=== PATIENT | male | born 1975 | race Caucasian/White ===

== ENCOUNTER 2024-02-24 12:30 | Inpatient (IN) | payer MEDICARE ==
[~2024-02-24] VITALS: Ht 185.4 cm; Wt 52.2 kg
[2024-02-24 15:55] LABS: BASOPHILS # (AUTO) 0.1 (0.0-0.1); BASOPHILS % 0.2 % (0.0-1.0); HEMATOCRIT 42.4 % (38.2-49.6); HEMOGLOBIN 13.3 g/dL (14.0-18.0); LYMPHOCYTES % 3.6 % (18.0-39.1); MEAN CORPUSCULAR HGB CONC 31.4 g/dL (31-35); MEAN CORPUSCULAR VOLUME 92.6 fL (81-99); MONOCYTES # (AUTO) 1.5 (0.2-0.8); MONOCYTES % 5.2 % (4.4-11.3); NEUTROPHILS # (AUTO) 25.9 (2.1-6.9); NEUTROPHILS % 90.1 % (38.7-80.0); PLATELET COUNT 524 x10e3/uL (140-360); RED BLOOD COUNT 4.58 x10e6/uL (4.3-5.7); RED CELL DISTRIBUTION WIDTH 14.3 % (11.7-14.4); WHITE BLOOD COUNT 28.77 x10e3/uL (4.8-10.8)
[2024-02-24 16:09] LABS: ALBUMIN 2.5 g/dL (3.5-5.0); ALBUMIN/GLOBULIN RATIO 0.4 (0.8-2.0); ANION GAP 22.2 mmol/L (8-16); BILIRUBIN,TOTAL 0.4 mg/dL (0.2-1.2); CALCIUM 11.6 mg/dL (8.4-10.2); CREATININE, SERUM 5.31 mg/dL (0.72-1.25); POTASSIUM 4.2 mmol/L (3.5-5.1); TOTAL PROTEIN 9.3 g/dL (6.5-8.1)
[2024-02-24 16:50] VITALS: TEMP 97.1
[2024-02-24] MEDS: SODIUM CHLORIDE 0.9% 1000ML 1,560 ML IV SCH (17:45)
[2024-02-24 18:24] VITALS: PULSE 98; RESP 18
[2024-02-24 20:00] VITALS: BP 125/79; PULSE 106; RESP 18; TEMP 97.6; O2SAT 97
[2024-02-24 21:00] VITALS: BP 125/79; PULSE 106; RESP 18; TEMP 97.6; O2SAT 97
[2024-02-24] MEDS ORDERED: MELATONIN 5 MG TABLET PO PRN (21:00)
[2024-02-24] MEDS ORDERED: ONDANSETRON HCL 4 MG ORAL DISINTEGRATING TAB PO PRN (21:00)
[2024-02-24] MEDS ORDERED: HYDRALAZINE HCL 20 MG/ML VIAL IV PRN (21:00)
[2024-02-24] MEDS ORDERED: FAMOTIDINE 20 MG TAB PO PRN (21:00)
[2024-02-25] VITALS (9 sets, daily range): BP systolic 129–155; BP diastolic 71–83; PULSE 89–106; RESP 17–18; TEMP 97.6–98.7; O2SAT 98–100
[2024-02-25] MEDS: SODIUM CHLORIDE 0.9% 1000ML 1,560 ML IV SCH
[2024-02-25 05:59] LABS: BASOPHILS # (AUTO) 0.1 (0.0-0.1); BASOPHILS % 0.2 % (0.0-1.0); HEMATOCRIT 38.6 % (38.2-49.6); HEMOGLOBIN 12.1 g/dL (14.0-18.0); MEAN CORPUSCULAR HEMOGLOBIN 28.7 pg (28-32); MEAN CORPUSCULAR HGB CONC 31.3 g/dL (31-35); MEAN CORPUSCULAR VOLUME 91.5 fL (81-99); MONOCYTES # (AUTO) 1.3 (0.2-0.8); MONOCYTES % 5.5 % (4.4-11.3); NEUTROPHILS # (AUTO) 21.7 (2.1-6.9); NEUTROPHILS % 89.3 % (38.7-80.0); PLATELET COUNT 506 x10e3/uL (140-360); RED BLOOD COUNT 4.22 x10e6/uL (4.3-5.7); RED CELL DISTRIBUTION WIDTH 14.4 % (11.7-14.4); WHITE BLOOD COUNT 24.32 x10e3/uL (4.8-10.8)
[2024-02-25 06:52] LABS: ALBUMIN 2.2 g/dL (3.5-5.0); ALBUMIN/GLOBULIN RATIO 0.4 (0.8-2.0); BILIRUBIN,TOTAL 0.1 mg/dL (0.2-1.2); CREATININE, SERUM 4.45 mg/dL (0.72-1.25); TOTAL PROTEIN 7.9 g/dL (6.5-8.1)
[2024-02-25] MEDS: SODIUM CHLORIDE 0.9% 1000ML 1,000 ML IV SCH (08:27)
[2024-02-25 09:01] LABS: LYMPHOCYTES % (MANUAL) 2 % (19-48); MONOCYTES % (MANUAL) 2 % (3.4-9.0); NEUTROPHILS % (MANUAL) 96 % (40-74); PLATELET ESTIMATE ADEQUATE
[2024-02-25 09:02] LABS: PLATELET MORPHOLOGY COMMENT NORMAL; RBC MORPHOLOGY COMMENT NORMAL
[2024-02-25] MEDS ORDERED: LIPITOR20 MG PO (10:32)
[2024-02-25] MEDS ORDERED: SERTRALINE HCL100 MG PO (10:32)
[2024-02-25] MEDS ORDERED: IMIPRAMINE HCL50 MG PO (10:32)
[2024-02-25] MEDS ORDERED: BUSPIRONE HCL10 MG PO (10:32)
[2024-02-25] MEDS ORDERED: CYMBALTA30 MG (10:32)
[2024-02-25 15:05] LABS: ANION GAP 24.5 mmol/L (8-16); POTASSIUM 4.5 mmol/L (3.5-5.1)
[2024-02-25 15:06] LABS: CALCIUM 11.5 mg/dL (8.4-10.2)
[2024-02-25] MEDS: ACETAMINOPHEN 325 MG TAB PO PRN (15:46)
[2024-02-25] MEDS: ATORVASTATIN 40 MG TAB PO SCH (21:53)
[2024-02-25] MEDS ORDERED: SODIUM BICARBONATE 8.4% 50 ML VIAL IV STA (23:48)
[2024-02-26] VITALS (8 sets, daily range): BP systolic 131–146; BP diastolic 73–83; PULSE 89–109; RESP 17–18; TEMP 97.7–98.7; O2SAT 99–100
[2024-02-26] MEDS: SODIUM BICARBONATE 8.4% INJ 50 ML SYR IV STA (00:12)
[2024-02-26] MEDS: SODIUM BICARBONATE 8.4% VIAL 50 ML in SODIUM CHLORIDE 0.9% 1000ML 1,000 ML IV STA (00:44)
[2024-02-26 06:03] LABS: BASOPHILS % 0.1 % (0.0-1.0); EOSINOPHILS % 0.1 % (0.0-6.0); HEMATOCRIT 33.5 % (38.2-49.6); LYMPHOCYTES # (AUTO) 0.8 (1.0-3.2); LYMPHOCYTES % 3.9 % (18.0-39.1); MEAN CORPUSCULAR HEMOGLOBIN 29.4 pg (28-32); MEAN CORPUSCULAR HGB CONC 32.8 g/dL (31-35); MEAN CORPUSCULAR VOLUME 89.6 fL (81-99); MONOCYTES # (AUTO) 1.4 (0.2-0.8); MONOCYTES % 6.5 % (4.4-11.3); NEUTROPHILS # (AUTO) 18.5 (2.1-6.9); NEUTROPHILS % 88.6 % (38.7-80.0); PLATELET COUNT 402 x10e3/uL (140-360); RED BLOOD COUNT 3.74 x10e6/uL (4.3-5.7); RED CELL DISTRIBUTION WIDTH 14.4 % (11.7-14.4); WHITE BLOOD COUNT 20.85 x10e3/uL (4.8-10.8)
[2024-02-26 06:19] LABS: ALBUMIN/GLOBULIN RATIO 0.4 (0.8-2.0); BILIRUBIN,TOTAL 0.3 mg/dL (0.2-1.2); CREATININE, SERUM 3.44 mg/dL (0.72-1.25); TOTAL PROTEIN 6.8 g/dL (6.5-8.1)
[2024-02-26 08:37] LABS: LYMPHOCYTES % (MANUAL) 4 % (19-48); MONOCYTES % (MANUAL) 1 % (3.4-9.0); NEUTROPHILS % (MANUAL) 95 % (40-74)
[2024-02-26 08:38] LABS: PLATELET ESTIMATE ADEQUATE; PLATELET MORPHOLOGY COMMENT NORMAL; RBC MORPHOLOGY COMMENT NORMAL
[2024-02-26] MEDS: HEPARIN SOD (PORCINE) 5,000 UNIT/ML VIAL SC SCH (12:09)
[2024-02-26 17:27] LABS: CALCIUM 10.6 mg/dL (8.4-10.2)
[2024-02-26 18:20] LABS: ABG HCO3 14 mmol/L (22-26); ABG PCO2 23 mmHg (35-45); ABG PH 7.38 (7.35-7.45); ABG PO2 122 mmHg (80-105); ABG TCO2 14
[2024-02-26] MEDS ORDERED: SODIUM BICARBONATE 8.4% SYRING 50 ML in SODIUM CHLORIDE 0.45% 1,000 ML IV SCH (20:30)
[2024-02-26] MEDS: SODIUM BICARBONATE 8.4% SYRING 50 ML in SODIUM CHLORIDE 0.45% 1,000 ML IV SCH (21:05)
[2024-02-27] VITALS (8 sets, daily range): BP systolic 106–133; BP diastolic 63–81; PULSE 97–102; RESP 17–20; TEMP 97.5–98.2; O2SAT 99–100
[2024-02-27 05:59] LABS: BASOPHILS % 0.2 % (0.0-1.0); EOSINOPHILS # (AUTO) 0.1 (0.0-0.4); EOSINOPHILS % 0.7 % (0.0-6.0); HEMATOCRIT 31.7 % (38.2-49.6); HEMOGLOBIN 10.6 g/dL (14.0-18.0); LYMPHOCYTES % 5.8 % (18.0-39.1); MEAN CORPUSCULAR HEMOGLOBIN 29.4 pg (28-32); MEAN CORPUSCULAR HGB CONC 33.4 g/dL (31-35); MEAN CORPUSCULAR VOLUME 87.8 fL (81-99); MONOCYTES # (AUTO) 1.5 (0.2-0.8); MONOCYTES % 8.2 % (4.4-11.3); NEUTROPHILS % 84.5 % (38.7-80.0); PLATELET COUNT 374 x10e3/uL (140-360); RED BLOOD COUNT 3.61 x10e6/uL (4.3-5.7); RED CELL DISTRIBUTION WIDTH 14.2 % (11.7-14.4); WHITE BLOOD COUNT 17.73 x10e3/uL (4.8-10.8)
[2024-02-27 06:15] LABS: ALBUMIN/GLOBULIN RATIO 0.4 (0.8-2.0); BILIRUBIN,TOTAL 0.3 mg/dL (0.2-1.2); CREATININE, SERUM 3.06 mg/dL (0.72-1.25); TOTAL PROTEIN 6.8 g/dL (6.5-8.1)
[2024-02-27] MEDS: BUSPIRONE HCL 10 MG TABLET PO SCH (08:58)
[2024-02-27] MEDS: DULOXETINE HCL 30 MG DELAYED RELEASE PO SCH (08:58)
[2024-02-27] MEDS: IMIPRAMINE HCL 50 MG TAB PO SCH (09:00)
[2024-02-27] MEDS: ACETAMINOPHEN 325 MG TAB PO PRN (11:58)
[2024-02-27 12:08] LABS: ANION GAP 15.5 mmol/L (8-16); CALCIUM 10.6 mg/dL (8.4-10.2); POTASSIUM 3.5 mmol/L (3.5-5.1)
[2024-02-27] MEDS ORDERED: LACTATED RINGER'S 1,000 ML INJ ONE (18:00)
[2024-02-27] MEDS: FUROSEMIDE INJ 10 MG/ML 2 ML VIAL IV ONE (18:27)
[2024-02-27] MEDS: SERTRALINE HCL 100 MG TAB PO SCH (21:00)
[2024-02-27] MEDS: LACTATED RINGER'S 1,000 ML INJ ONE (22:19)
[2024-02-28] VITALS (8 sets, daily range): BP systolic 102–131; BP diastolic 61–79; PULSE 101–113; RESP 16–20; TEMP 97.3–98.9; O2SAT 97–100
[2024-02-28 06:37] LABS: BASOPHILS % 0.2 % (0.0-1.0); EOSINOPHILS # (AUTO) 0.1 (0.0-0.4); EOSINOPHILS % 0.3 % (0.0-6.0); HEMATOCRIT 34.5 % (38.2-49.6); HEMOGLOBIN 11.4 g/dL (14.0-18.0); LYMPHOCYTES # (AUTO) 1.1 (1.0-3.2); LYMPHOCYTES % 6.9 % (18.0-39.1); MEAN CORPUSCULAR HEMOGLOBIN 29.4 pg (28-32); MEAN CORPUSCULAR VOLUME 88.9 fL (81-99); MONOCYTES # (AUTO) 0.9 (0.2-0.8); MONOCYTES % 5.7 % (4.4-11.3); NEUTROPHILS # (AUTO) 13.7 (2.1-6.9); PLATELET COUNT 421 x10e3/uL (140-360); RED BLOOD COUNT 3.88 x10e6/uL (4.3-5.7); RED CELL DISTRIBUTION WIDTH 14.4 % (11.7-14.4); WHITE BLOOD COUNT 15.91 x10e3/uL (4.8-10.8)
[2024-02-28 07:03] LABS: ALBUMIN 2.1 g/dL (3.5-5.0); ALBUMIN/GLOBULIN RATIO 0.4 (0.8-2.0); ANION GAP 17.8 mmol/L (8-16); BILIRUBIN,TOTAL 0.3 mg/dL (0.2-1.2); CALCIUM 10.8 mg/dL (8.4-10.2); CREATININE, SERUM 3.42 mg/dL (0.72-1.25); POTASSIUM 3.8 mmol/L (3.5-5.1); TOTAL PROTEIN 7.4 g/dL (6.5-8.1)
[2024-02-28] MEDS: IMIPRAMINE HCL 50 MG TAB NG SCH (15:00)
[2024-02-28] MEDS ORDERED: DIATRIZOATE MEGL/DIATRIZOA SOD 30 ML BTL PO ONE (15:09)
[2024-02-28] MEDS: BUSPIRONE HCL 10 MG TABLET NG SCH (17:00)
[2024-02-28] MEDS: SERTRALINE HCL 100 MG TAB NG SCH (20:28)
[2024-02-29] VITALS (8 sets, daily range): BP systolic 118–131; BP diastolic 66–96; PULSE 109–117; RESP 16–20; TEMP 97.5–98.6; O2SAT 99–100
[2024-02-29 06:27] LABS: BASOPHILS % 0.2 % (0.0-1.0); EOSINOPHILS # (AUTO) 0.1 (0.0-0.4); EOSINOPHILS % 0.6 % (0.0-6.0); HEMATOCRIT 40.3 % (38.2-49.6); HEMOGLOBIN 12.1 g/dL (14.0-18.0); LYMPHOCYTES # (AUTO) 1.2 (1.0-3.2); LYMPHOCYTES % 8.3 % (18.0-39.1); MEAN CORPUSCULAR HEMOGLOBIN 28.9 pg (28-32); MEAN CORPUSCULAR VOLUME 96.2 fL (81-99); MONOCYTES % 6.9 % (4.4-11.3); NEUTROPHILS # (AUTO) 11.8 (2.1-6.9); NEUTROPHILS % 83.3 % (38.7-80.0); PLATELET COUNT 392 x10e3/uL (140-360); RED BLOOD COUNT 4.19 x10e6/uL (4.3-5.7); RED CELL DISTRIBUTION WIDTH 14.5 % (11.7-14.4); WHITE BLOOD COUNT 14.16 x10e3/uL (4.8-10.8)
[2024-02-29 07:03] LABS: ALBUMIN 2.2 g/dL (3.5-5.0); ALBUMIN/GLOBULIN RATIO 0.4 (0.8-2.0); ANION GAP 22.1 mmol/L (8-16); BILIRUBIN,TOTAL 0.3 mg/dL (0.2-1.2); CALCIUM 11.6 mg/dL (8.4-10.2); CREATININE, SERUM 3.21 mg/dL (0.72-1.25); POTASSIUM 4.1 mmol/L (3.5-5.1); TOTAL PROTEIN 7.8 g/dL (6.5-8.1)
[2024-02-29] MEDS ORDERED: DULOXETINE HCL 30 MG DELAYED RELEASE NG SCH (09:00)
[2024-02-29 09:40] LABS: PLATELET ESTIMATE ADEQUATE; PLATELET MORPHOLOGY COMMENT FEW EDTA CLUMPING
[2024-02-29 09:41] LABS: RBC MORPHOLOGY COMMENT NORMAL
[2024-02-29] MEDS: SODIUM BICARBONATE 8.4% VIAL 100 ML in DEXTROSE 5% 1,000 ML IV SCH (13:04)
[2024-02-29 13:09] LABS: CALCIUM 10.4 mg/dL (8.7-10.2)
[2024-02-29] MEDS ORDERED: CEFTRIAXONE 1 GM VIAL ONE (14:18)
[2024-02-29 14:37] LABS: ANION GAP 21.7 mmol/L (8-16); CALCIUM 11.3 mg/dL (8.4-10.2); CREATININE, SERUM 3.14 mg/dL (0.72-1.25); POTASSIUM 3.7 mmol/L (3.5-5.1)
[2024-03-01] VITALS (9 sets, daily range): BP systolic 101–142; BP diastolic 60–89; PULSE 99–118; RESP 16–18; TEMP 97.6–98.6; O2SAT 100
[2024-03-01 05:57] LABS: BASOPHILS % 0.2 % (0.0-1.0); EOSINOPHILS # (AUTO) 0.2 (0.0-0.4); EOSINOPHILS % 1.1 % (0.0-6.0); HEMATOCRIT 33.7 % (38.2-49.6); LYMPHOCYTES # (AUTO) 1.7 (1.0-3.2); LYMPHOCYTES % 9.1 % (18.0-39.1); MEAN CORPUSCULAR HEMOGLOBIN 29.2 pg (28-32); MEAN CORPUSCULAR HGB CONC 32.6 g/dL (31-35); MEAN CORPUSCULAR VOLUME 89.4 fL (81-99); MONOCYTES # (AUTO) 1.3 (0.2-0.8); MONOCYTES % 7.1 % (4.4-11.3); NEUTROPHILS # (AUTO) 14.9 (2.1-6.9); NEUTROPHILS % 81.8 % (38.7-80.0); PLATELET COUNT 458 x10e3/uL (140-360); RED BLOOD COUNT 3.77 x10e6/uL (4.3-5.7); RED CELL DISTRIBUTION WIDTH 14.3 % (11.7-14.4); WHITE BLOOD COUNT 18.14 x10e3/uL (4.8-10.8)
[2024-03-01 06:28] LABS: ALBUMIN/GLOBULIN RATIO 0.4 (0.8-2.0); ANION GAP 17.3 mmol/L (8-16); BILIRUBIN,TOTAL 0.2 mg/dL (0.2-1.2); CALCIUM 10.2 mg/dL (8.4-10.2); CREATININE, SERUM 3.2 mg/dL (0.72-1.25); TOTAL PROTEIN 7.1 g/dL (6.5-8.1)
[2024-03-01 06:31] LABS: POTASSIUM 3.3 mmol/L (3.5-5.1)
[2024-03-01 06:40] LABS: MAGNESIUM 2.4 MG/DL (1.3-2.1)
[2024-03-01] MEDS: DULOXETINE HCL 30 MG DELAYED RELEASE NG SCH (09:21)
[2024-03-01 10:49] LABS: ANION GAP 19.3 mmol/L (8-16); CALCIUM 10.5 mg/dL (8.4-10.2); CREATININE, SERUM 3.29 mg/dL (0.72-1.25)
[2024-03-01 10:50] LABS: POTASSIUM 3.3 mmol/L (3.5-5.1)
[2024-03-01] MEDS: POLYETHYLENE GLYCOL 3350 17 GM PACK NG ONE (15:01)
[2024-03-01] MEDS: SOD CHL 0.45%/POT CHL 20MEQ 1,000 ML IV SCH (21:38)
[2024-03-01] MEDS: ACETAMINOPHEN 325 MG/10 ML UDC NG PRN (21:38)
[2024-03-02 05:01] VITALS: BP 115/73; PULSE 104; RESP 20; TEMP 99.5; O2SAT 100
[2024-03-02 05:53] LABS: BASOPHILS % 0.2 % (0.0-1.0); EOSINOPHILS # (AUTO) 0.1 (0.0-0.4); EOSINOPHILS % 0.5 % (0.0-6.0); HEMATOCRIT 34.7 % (38.2-49.6); HEMOGLOBIN 10.6 g/dL (14.0-18.0); LYMPHOCYTES # (AUTO) 1.9 (1.0-3.2); LYMPHOCYTES % 9.1 % (18.0-39.1); MEAN CORPUSCULAR HEMOGLOBIN 28.5 pg (28-32); MEAN CORPUSCULAR HGB CONC 30.5 g/dL (31-35); MEAN CORPUSCULAR VOLUME 93.3 fL (81-99); MONOCYTES # (AUTO) 1.6 (0.2-0.8); MONOCYTES % 7.3 % (4.4-11.3); NEUTROPHILS # (AUTO) 17.4 (2.1-6.9); NEUTROPHILS % 82.1 % (38.7-80.0); PLATELET COUNT 420 x10e3/uL (140-360); RED BLOOD COUNT 3.72 x10e6/uL (4.3-5.7); RED CELL DISTRIBUTION WIDTH 14.5 % (11.7-14.4); WHITE BLOOD COUNT 21.18 x10e3/uL (4.8-10.8)
[2024-03-02 06:48] LABS: ALBUMIN/GLOBULIN RATIO 0.4 (0.8-2.0); ANION GAP 18.7 mmol/L (8-16); BILIRUBIN,TOTAL 0.3 mg/dL (0.2-1.2); CALCIUM 10.1 mg/dL (8.4-10.2); CREATININE, SERUM 3.81 mg/dL (0.72-1.25); POTASSIUM 3.7 mmol/L (3.5-5.1); TOTAL PROTEIN 6.8 g/dL (6.5-8.1)
[2024-03-02 07:48] LABS: BAND NEUTROPHILS % (MANUAL) 2 %; EOSINOPHILS % (MANUAL) 1 % (0-7); LYMPHOCYTES % (MANUAL) 13 % (19-48); MONOCYTES % (MANUAL) 7 % (3.4-9.0); NEUTROPHILS % (MANUAL) 76 % (40-74); REACTIVE LYMPHOCYTES 1
[2024-03-02 07:49] LABS: PLATELET ESTIMATE ADEQUATE; PLATELET MORPHOLOGY COMMENT NORMAL; RBC MORPHOLOGY COMMENT NORMAL
[2024-03-02 08:31] VITALS: BP 107/80; PULSE 106; RESP 17; TEMP 98.2; O2SAT 100
[2024-03-02] MEDS ORDERED: DEXTROSE 5% 0 ML IV ONE (10:07)
[2024-03-02] MEDS: LORAZEPAM INJ 2 MG/ML VIAL IV ONE (11:44)
[2024-03-02 12:24] VITALS: BP 117/64; PULSE 103; RESP 15; TEMP 98.3; O2SAT 100
[2024-03-02 15:50] LABS: KAPPA LIGHT CHAINS 87.7; SPE ALPHA 1 GLOBULIN 0.5; SPE ALPHA 2 GLOBULIN 1.1; SPE GAMMA GLOBULIN 1.3; SPE TOTAL PROTEIN 6.2
[2024-03-02 15:51] LABS: A/G RATIO 0.6; KAPPA/LAMBDA RATIO 1.12; LAMBDA LIGHT CHAINS 78.3
[2024-03-02 16:35] VITALS: BP 123/73; PULSE 100; RESP 16; TEMP 98.5; O2SAT 100
[2024-03-02 20:00] VITALS: BP 112/77; PULSE 104; RESP 16; TEMP 98; O2SAT 100
[2024-03-03] VITALS: BP 123/73; PULSE 94; RESP 17; TEMP 97.8; O2SAT 100
[2024-03-03] MEDS: SODIUM BICARBONATE 8.4% VIAL 100 ML in DEXTROSE 5% 1,000 ML IV SCH (02:07)
[2024-03-03 04:00] VITALS: BP 131/73; PULSE 109; RESP 18; TEMP 97.9; O2SAT 100
[2024-03-03 05:49] LABS: BASOPHILS % 0.2 % (0.0-1.0); EOSINOPHILS # (AUTO) 0.3 (0.0-0.4); EOSINOPHILS % 2.8 % (0.0-6.0); HEMATOCRIT 29.7 % (38.2-49.6); HEMOGLOBIN 9.8 g/dL (14.0-18.0); LYMPHOCYTES # (AUTO) 2.5 (1.0-3.2); LYMPHOCYTES % 20.6 % (18.0-39.1); MEAN CORPUSCULAR HEMOGLOBIN 29.5 pg (28-32); MEAN CORPUSCULAR VOLUME 89.5 fL (81-99); MONOCYTES # (AUTO) 0.7 (0.2-0.8); MONOCYTES % 5.7 % (4.4-11.3); NEUTROPHILS # (AUTO) 8.4 (2.1-6.9); NEUTROPHILS % 69.9 % (38.7-80.0); PLATELET COUNT 447 x10e3/uL (140-360); RED BLOOD COUNT 3.32 x10e6/uL (4.3-5.7); RED CELL DISTRIBUTION WIDTH 14.1 % (11.7-14.4); WHITE BLOOD COUNT 11.97 x10e3/uL (4.8-10.8)
[2024-03-03 06:35] LABS: ALBUMIN 1.9 g/dL (3.5-5.0); ALBUMIN/GLOBULIN RATIO 0.4 (0.8-2.0); ANION GAP 14.3 mmol/L (8-16); BILIRUBIN,TOTAL 0.2 mg/dL (0.2-1.2); CALCIUM 10.1 mg/dL (8.4-10.2); CREATININE, SERUM 1.65 mg/dL (0.72-1.25); TOTAL PROTEIN 6.5 g/dL (6.5-8.1)
[2024-03-03 06:36] LABS: POTASSIUM 3.3 mmol/L (3.5-5.1)
[2024-03-03 07:56] VITALS: BP 116/75; PULSE 109; RESP 20; TEMP 98; O2SAT 100
[2024-03-03] MEDS ORDERED: SODIUM CHLORIDE 0.9% 500ML 500 ML ONE (09:27)
[2024-03-03] MEDS ORDERED: LIDOCAINE HCL 1% LOCAL INJ 20 ML VIAL ONE (09:27)
[2024-03-03] MEDS ORDERED: IOPAMIDOL 370 MG/ML 100 ML INFUS..BTL INJ ONE (09:27)
[2024-03-03] MEDS ORDERED: MIDAZOLAM HCL 2 MG/2 ML VIAL ONE (09:28)
[2024-03-03] MEDS ORDERED: SODIUM CHLORIDE 0.9% 250ML 250 ML ONE (09:29)
[2024-03-03] MEDS ORDERED: FENTANYL CITRATE/PF 100MCG/2 ML INJ ONE (09:29)
[2024-03-03 10:08] LABS: INR 0.99; PROTHROMBIN TIME 13.8 seconds (11.9-14.5)
[2024-03-03 12:16] VITALS: BP 127/81; PULSE 103; RESP 20; TEMP 98; O2SAT 100
[2024-03-03] MEDS: DEXTROSE 5% 1,000 ML IV SCH (13:28)
[2024-03-03] MEDS: GLUCAGON FOR INJ 1 MG VIAL IV ONE (15:42)
[2024-03-03 15:59] LABS: ANION GAP 15.4 mmol/L (8-16); CALCIUM 10.1 mg/dL (8.4-10.2); CREATININE, SERUM 1.48 mg/dL (0.72-1.25)
[2024-03-03 16:05] LABS: POTASSIUM 3.4 mmol/L (3.5-5.1)
[2024-03-03] MEDS ORDERED: NYSTATIN 15 GM POWDER UD BTL TOP SCH (17:00)
[2024-03-03] MEDS: NYSTATIN 100,000 UNITS/GM CRM 30GM TUBE TOP SCH (17:00)
[2024-03-03 17:21] VITALS: BP 129/82; PULSE 109; RESP 20; TEMP 98.9; O2SAT 99
[2024-03-03 20:00] VITALS: BP 128/83; PULSE 107; RESP 17; TEMP 98.1; O2SAT 100
[2024-03-04] VITALS (15 sets, daily range): BP systolic 97–140; BP diastolic 55–83; PULSE 86–112; RESP 16–26; TEMP 97–98.9; O2SAT 98–100
[2024-03-04 06:05] LABS: BASOPHILS % 0.2 % (0.0-1.0); EOSINOPHILS # (AUTO) 0.1 (0.0-0.4); EOSINOPHILS % 0.6 % (0.0-6.0); HEMATOCRIT 33.4 % (38.2-49.6); HEMOGLOBIN 10.4 g/dL (14.0-18.0); LYMPHOCYTES # (AUTO) 2.3 (1.0-3.2); LYMPHOCYTES % 12.1 % (18.0-39.1); MEAN CORPUSCULAR HEMOGLOBIN 29.2 pg (28-32); MEAN CORPUSCULAR HGB CONC 31.1 g/dL (31-35); MEAN CORPUSCULAR VOLUME 93.8 fL (81-99); MONOCYTES # (AUTO) 0.9 (0.2-0.8); MONOCYTES % 4.6 % (4.4-11.3); NEUTROPHILS # (AUTO) 15.8 (2.1-6.9); NEUTROPHILS % 81.9 % (38.7-80.0); PLATELET COUNT 497 x10e3/uL (140-360); RED BLOOD COUNT 3.56 x10e6/uL (4.3-5.7); RED CELL DISTRIBUTION WIDTH 14.3 % (11.7-14.4); WHITE BLOOD COUNT 19.22 x10e3/uL (4.8-10.8)
[2024-03-04 06:36] LABS: ANION GAP 15.7 mmol/L (8-16); CALCIUM 10.2 mg/dL (8.4-10.2); CREATININE, SERUM 1.59 mg/dL (0.72-1.25); POTASSIUM 3.7 mmol/L (3.5-5.1)
[2024-03-04] MEDS ORDERED: BUPIVACAINE 0.25% 30ML SDV ONE (11:36)
[2024-03-04] MEDS ORDERED: FENTANYL CITRATE/PF 100MCG/2 ML INJ ONE (11:47)
[2024-03-04] MEDS ORDERED: LIDOCAINE HCL 2% LOCAL INJ 5 ML SDV VIAL INJ ONE (12:21)
[2024-03-04] MEDS ORDERED: ACETAMINOPHEN 1000 MG/100 ML IV ONE (12:21)
[2024-03-04] MEDS ORDERED: ONDANSETRON HCL INJ 2MG/ML 2ML 2 MG/ML VIAL ONE (12:21)
[2024-03-04] MEDS ORDERED: PROPOFOL IV EMULSION 10 MG/ML 20 ML VIAL ONE (12:21)
[2024-03-04] MEDS ORDERED: DEXAMETHASONE SOD PHOS INJ 4 MG/ML SDV ONE (12:21)
[2024-03-04] MEDS ORDERED: ROCURONIUM BROMIDE 10 MG/ML 5ML VIAL IV ONE (12:21)
[2024-03-04] MEDS ORDERED: PHENYLEPHRINE HCL 1% 10 MG/ML VIAL ONE (12:21)
[2024-03-04] MEDS ORDERED: SEVOFLURANE INHAL SOLN 250 ML PEN BTL ONE (12:21)
[2024-03-04] MEDS: DEXTROSE 5% 1,000 ML IV SCH (15:06)
[2024-03-04] MEDS: BUPIVACAINE LIPOSOME/PF 266 MG/20 ML IJ ONE (15:07)
[2024-03-04] MEDS: ONDANSETRON HCL INJ 2MG/ML 2ML 2 MG/ML VIAL IV PRN (17:59)
[2024-03-04] MEDS: Morphine 2mg Syringe 2 MG/ML SYR IV PRN (18:20)
[2024-03-05] VITALS (10 sets, daily range): BP systolic 95–108; BP diastolic 55–69; PULSE 85–125; RESP 17–30; TEMP 98.1–99.6; O2SAT 93–98
[2024-03-05 05:47] LABS: BASOPHILS # (AUTO) 0.1 (0.0-0.1); BASOPHILS % 0.1 % (0.0-1.0); EOSINOPHILS # (AUTO) 0.1 (0.0-0.4); EOSINOPHILS % 0.3 % (0.0-6.0); HEMATOCRIT 26.6 % (38.2-49.6); HEMOGLOBIN 7.8 g/dL (14.0-18.0); LYMPHOCYTES # (AUTO) 1.6 (1.0-3.2); LYMPHOCYTES % 4.4 % (18.0-39.1); MEAN CORPUSCULAR HEMOGLOBIN 28.7 pg (28-32); MEAN CORPUSCULAR HGB CONC 29.3 g/dL (31-35); MEAN CORPUSCULAR VOLUME 97.8 fL (81-99); MONOCYTES # (AUTO) 1.4 (0.2-0.8); MONOCYTES % 3.8 % (4.4-11.3); NEUTROPHILS # (AUTO) 33.6 (2.1-6.9); NEUTROPHILS % 90.3 % (38.7-80.0); PLATELET COUNT 494 x10e3/uL (140-360); RED BLOOD COUNT 2.72 x10e6/uL (4.3-5.7); RED CELL DISTRIBUTION WIDTH 14.3 % (11.7-14.4); WHITE BLOOD COUNT 37.23 x10e3/uL (4.8-10.8)
[2024-03-05 06:22] LABS: CALCIUM 8.5 mg/dL (8.4-10.2); CREATININE, SERUM 1.77 mg/dL (0.72-1.25)
[2024-03-05 09:44] LABS: LYMPHOCYTES % (MANUAL) 5 % (19-48); MONOCYTES % (MANUAL) 3 % (3.4-9.0); NEUTROPHILS % (MANUAL) 92 % (40-74)
[2024-03-05 09:45] LABS: HYPOCHROMASIA SLIGHT; PLATELET ESTIMATE ADEQUATE; PLATELET MORPHOLOGY COMMENT NORMAL; RBC MORPHOLOGY COMMENT NORMAL
[2024-03-05 16:12] LABS: BASOPHILS # (AUTO) 0.1 (0.0-0.1); BASOPHILS % 0.2 % (0.0-1.0); EOSINOPHILS # (AUTO) 0.2 (0.0-0.4); EOSINOPHILS % 0.4 % (0.0-6.0); HEMATOCRIT 25.2 % (38.2-49.6); HEMOGLOBIN 7.8 g/dL (14.0-18.0); LYMPHOCYTES # (AUTO) 2.2 (1.0-3.2); LYMPHOCYTES % 5.8 % (18.0-39.1); MEAN CORPUSCULAR HEMOGLOBIN 29.3 pg (28-32); MEAN CORPUSCULAR VOLUME 94.7 fL (81-99); MONOCYTES # (AUTO) 1.3 (0.2-0.8); MONOCYTES % 3.4 % (4.4-11.3); NEUTROPHILS # (AUTO) 34.5 (2.1-6.9); NEUTROPHILS % 89.3 % (38.7-80.0); PLATELET COUNT 449 x10e3/uL (140-360); RED BLOOD COUNT 2.66 x10e6/uL (4.3-5.7); RED CELL DISTRIBUTION WIDTH 14.5 % (11.7-14.4)
[2024-03-05 16:30] LABS: ANION GAP 16.8 mmol/L (8-16); CALCIUM 9.2 mg/dL (8.4-10.2); CREATININE, SERUM 2.05 mg/dL (0.72-1.25); MAGNESIUM 1.6 MG/DL (1.3-2.1); POTASSIUM 3.8 mmol/L (3.5-5.1)
[2024-03-05 16:37] LABS: TROPONIN I 0.02 ng/mL (0-0.300)
[2024-03-05] MEDS: SODIUM CHLORIDE 0.9% 1000ML 250 ML IV ONE (16:39)
[2024-03-05] MEDS ORDERED: ALBUMIN 25% 25GM 100ML 0.25 GM/ML BTL IV ONE (17:15)
[2024-03-05] MEDS: SODIUM CHLORIDE 0.9% 500ML 500 ML IV SCH (18:39)
[2024-03-05] MEDS: ALBUMIN 25% 25GM 100ML 100 ML IV SCH (18:42)
[2024-03-05] MEDS: DEXTROSE 5% 1,000 ML IV SCH (19:50)
[2024-03-05] MEDS: METRONIDAZOLE 500MG/NS 100ML 100 ML IV SCH (22:25)
[2024-03-06] VITALS (11 sets, daily range): BP systolic 109–126; BP diastolic 53–67; PULSE 89–129; RESP 16–58; TEMP 97.7–100.4; O2SAT 92–99
[2024-03-06] MEDS: LEVALBUTEROL HCL SOLN NEBU 0.63 MG/3 ML NEB INH SCH (00:47)
[2024-03-06 07:32] LABS: BASOPHILS # (AUTO) 0.1 (0.0-0.1); BASOPHILS % 0.2 % (0.0-1.0); EOSINOPHILS # (AUTO) 0.1 (0.0-0.4); EOSINOPHILS % 0.3 % (0.0-6.0); HEMATOCRIT 22.1 % (38.2-49.6); LYMPHOCYTES # (AUTO) 1.5 (1.0-3.2); LYMPHOCYTES % 4.3 % (18.0-39.1); MEAN CORPUSCULAR HEMOGLOBIN 29.9 pg (28-32); MEAN CORPUSCULAR HGB CONC 30.3 g/dL (31-35); MEAN CORPUSCULAR VOLUME 98.7 fL (81-99); MONOCYTES # (AUTO) 1.3 (0.2-0.8); MONOCYTES % 3.9 % (4.4-11.3); NEUTROPHILS # (AUTO) 31.5 (2.1-6.9); NEUTROPHILS % 90.4 % (38.7-80.0); RED BLOOD COUNT 2.24 x10e6/uL (4.3-5.7); RED CELL DISTRIBUTION WIDTH 14.7 % (11.7-14.4); WHITE BLOOD COUNT 34.78 x10e3/uL (4.8-10.8)
[2024-03-06 07:43] LABS: PLATELET COUNT 399 x10e3/uL (140-360)
[2024-03-06 07:45] LABS: HEMOGLOBIN 6.7 g/dL (14.0-18.0)
[2024-03-06] MEDS ORDERED: SODIUM CHLORIDE 0.9% 250ML 250 ML IV ONE (10:00)
[2024-03-06 15:14] LABS: BAND NEUTROPHILS % (MANUAL) 7 %; HYPOCHROMASIA MODERATE; LYMPHOCYTES % (MANUAL) 2 % (19-48); MONOCYTES % (MANUAL) 4 % (3.4-9.0); NEUTROPHILS % (MANUAL) 87 % (40-74); PLATELET ESTIMATE ADEQUATE; PLATELET MORPHOLOGY COMMENT NORMAL
[2024-03-06] MEDS: SODIUM CHLORIDE 0.9% 250ML 250 ML IV ONE ×2 (17:39→18:02)
[2024-03-06] MEDS: FAMOTIDINE 20 MG TAB PEG SCH (18:01)
[2024-03-07] VITALS (12 sets, daily range): BP systolic 105–135; BP diastolic 72–87; PULSE 83–121; RESP 18–21; TEMP 98.1–101.1; O2SAT 95–100
[2024-03-07 08:06] LABS: BASOPHILS # (AUTO) 0.1 (0.0-0.1); BASOPHILS % 0.2 % (0.0-1.0); EOSINOPHILS # (AUTO) 0.1 (0.0-0.4); EOSINOPHILS % 0.2 % (0.0-6.0); HEMOGLOBIN 9.9 g/dL (14.0-18.0); LYMPHOCYTES # (AUTO) 1.2 (1.0-3.2); LYMPHOCYTES % 3.1 % (18.0-39.1); MEAN CORPUSCULAR VOLUME 90.9 fL (81-99); MONOCYTES # (AUTO) 1.3 (0.2-0.8); MONOCYTES % 3.4 % (4.4-11.3); NEUTROPHILS % 91.4 % (38.7-80.0); PLATELET COUNT 399 x10e3/uL (140-360); RED CELL DISTRIBUTION WIDTH 15.4 % (11.7-14.4); WHITE BLOOD COUNT 37.19 x10e3/uL (4.8-10.8)
[2024-03-07 08:54] LABS: ALBUMIN 2.3 g/dL (3.5-5.0); ALBUMIN/GLOBULIN RATIO 0.6 (0.8-2.0); ANION GAP 16.3 mmol/L (8-16); BILIRUBIN,TOTAL 0.6 mg/dL (0.2-1.2); CALCIUM 9.2 mg/dL (8.4-10.2); CREATININE, SERUM 2.08 mg/dL (0.72-1.25)
[2024-03-07 09:08] LABS: POTASSIUM 3.3 mmol/L (3.5-5.1)
[2024-03-07] MEDS: DEXTROSE 5% 1,000 ML IV SCH (11:15)
[2024-03-07 14:54] LABS: BAND NEUTROPHILS % (MANUAL) 3 %; HYPOCHROMASIA SLIGHT; LYMPHOCYTES % (MANUAL) 3 % (19-48); MONOCYTES % (MANUAL) 2 % (3.4-9.0); NEUTROPHILS % (MANUAL) 92 % (40-74); PLATELET ESTIMATE ADEQUATE; PLATELET MORPHOLOGY COMMENT NORMAL
[2024-03-07] MEDS: CALCITONIN SALMON 400 IU/2ML VIAL SC ONE (18:35)
[2024-03-08] VITALS (13 sets, daily range): BP systolic 92–113; BP diastolic 59–76; PULSE 99–113; RESP 17–20; TEMP 98.1–100.8; O2SAT 97–100
[2024-03-08 06:57] LABS: BASOPHILS # (AUTO) 0.1 (0.0-0.1); BASOPHILS % 0.2 % (0.0-1.0); EOSINOPHILS # (AUTO) 0.2 (0.0-0.4); EOSINOPHILS % 0.5 % (0.0-6.0); HEMATOCRIT 27.1 % (38.2-49.6); HEMOGLOBIN 9.1 g/dL (14.0-18.0); LYMPHOCYTES # (AUTO) 1.6 (1.0-3.2); LYMPHOCYTES % 4.2 % (18.0-39.1); MEAN CORPUSCULAR HEMOGLOBIN 30.3 pg (28-32); MEAN CORPUSCULAR HGB CONC 33.6 g/dL (31-35); MEAN CORPUSCULAR VOLUME 90.3 fL (81-99); MONOCYTES # (AUTO) 1.4 (0.2-0.8); MONOCYTES % 3.6 % (4.4-11.3); NEUTROPHILS # (AUTO) 34.1 (2.1-6.9); NEUTROPHILS % 90.5 % (38.7-80.0); PLATELET COUNT 436 x10e3/uL (140-360); WHITE BLOOD COUNT 37.66 x10e3/uL (4.8-10.8)
[2024-03-08 09:47] LABS: LYMPHOCYTES % (MANUAL) 6 % (19-48); MONOCYTES % (MANUAL) 3 % (3.4-9.0); NEUTROPHILS % (MANUAL) 91 % (40-74); PLATELET ESTIMATE ADEQUATE; PLATELET MORPHOLOGY COMMENT NORMAL
[2024-03-08 09:48] LABS: RBC MORPHOLOGY COMMENT NORMAL
[2024-03-08 09:53] LABS: ALBUMIN 1.9 g/dL (3.5-5.0); ALBUMIN/GLOBULIN RATIO 0.5 (0.8-2.0); ANION GAP 14.9 mmol/L (8-16); BILIRUBIN,TOTAL 0.3 mg/dL (0.2-1.2); CREATININE, SERUM 1.71 mg/dL (0.72-1.25); TOTAL PROTEIN 5.5 g/dL (6.5-8.1)
[2024-03-08 09:54] LABS: POTASSIUM 2.9 mmol/L (3.5-5.1)
[2024-03-08] MEDS: POTASSIUM CHLORIDE 20 MEQ TAB CR PO ONE (14:05)
[2024-03-08] MEDS: POTASSIUM CHL 40 MEQ in DEXTROSE 5% 1,000 ML IV SCH (18:22)
[2024-03-09] VITALS (7 sets, daily range): BP systolic 92–109; BP diastolic 67–80; PULSE 77–107; RESP 18–22; TEMP 98–100; O2SAT 92–100
[2024-03-09 05:16] LABS: BASOPHILS % 0.1 % (0.0-1.0); EOSINOPHILS # (AUTO) 0.2 (0.0-0.4); EOSINOPHILS % 0.6 % (0.0-6.0); HEMATOCRIT 25.3 % (38.2-49.6); HEMOGLOBIN 8.4 g/dL (14.0-18.0); LYMPHOCYTES # (AUTO) 1.4 (1.0-3.2); LYMPHOCYTES % 4.6 % (18.0-39.1); MEAN CORPUSCULAR HEMOGLOBIN 30.4 pg (28-32); MEAN CORPUSCULAR HGB CONC 33.2 g/dL (31-35); MEAN CORPUSCULAR VOLUME 91.7 fL (81-99); MONOCYTES # (AUTO) 1.5 (0.2-0.8); MONOCYTES % 4.6 % (4.4-11.3); PLATELET COUNT 388 x10e3/uL (140-360); RED BLOOD COUNT 2.76 x10e6/uL (4.3-5.7); RED CELL DISTRIBUTION WIDTH 15.4 % (11.7-14.4)
[2024-03-09 05:36] LABS: ALBUMIN 1.7 g/dL (3.5-5.0); ALBUMIN/GLOBULIN RATIO 0.5 (0.8-2.0); BILIRUBIN,TOTAL 0.3 mg/dL (0.2-1.2); CALCIUM 8.1 mg/dL (8.4-10.2); CREATININE, SERUM 1.26 mg/dL (0.72-1.25); TOTAL PROTEIN 5.3 g/dL (6.5-8.1)
[2024-03-09 09:55] LABS: LYMPHOCYTES % (MANUAL) 3 % (19-48); MONOCYTES % (MANUAL) 5 % (3.4-9.0); NEUTROPHILS % (MANUAL) 92 % (40-74)
[2024-03-09 09:56] LABS: PLATELET ESTIMATE ADEQUATE; PLATELET MORPHOLOGY COMMENT NORMAL; RBC MORPHOLOGY COMMENT NORMAL
[2024-03-10] VITALS (11 sets, daily range): BP systolic 92–110; BP diastolic 53–70; PULSE 79–116; RESP 18–23; TEMP 98–99.6; O2SAT 94–100
[2024-03-10 05:54] LABS: BASOPHILS % 0.1 % (0.0-1.0); EOSINOPHILS # (AUTO) 0.2 (0.0-0.4); EOSINOPHILS % 0.7 % (0.0-6.0); HEMATOCRIT 24.1 % (38.2-49.6); HEMOGLOBIN 7.5 g/dL (14.0-18.0); LYMPHOCYTES # (AUTO) 1.3 (1.0-3.2); LYMPHOCYTES % 6.1 % (18.0-39.1); MEAN CORPUSCULAR HEMOGLOBIN 29.5 pg (28-32); MEAN CORPUSCULAR HGB CONC 31.1 g/dL (31-35); MEAN CORPUSCULAR VOLUME 94.9 fL (81-99); MONOCYTES # (AUTO) 1.2 (0.2-0.8); MONOCYTES % 5.7 % (4.4-11.3); NEUTROPHILS # (AUTO) 18.7 (2.1-6.9); NEUTROPHILS % 85.9 % (38.7-80.0); PLATELET COUNT 352 x10e3/uL (140-360); RED BLOOD COUNT 2.54 x10e6/uL (4.3-5.7); RED CELL DISTRIBUTION WIDTH 14.7 % (11.7-14.4); WHITE BLOOD COUNT 21.71 x10e3/uL (4.8-10.8)
[2024-03-10 06:49] LABS: ALBUMIN 1.7 g/dL (3.5-5.0); ALBUMIN/GLOBULIN RATIO 0.5 (0.8-2.0); ANION GAP 12.1 mmol/L (8-16); BILIRUBIN,TOTAL 0.1 mg/dL (0.2-1.2); CALCIUM 8.6 mg/dL (8.4-10.2); CREATININE, SERUM 1.18 mg/dL (0.72-1.25); POTASSIUM 4.1 mmol/L (3.5-5.1); TOTAL PROTEIN 5.2 g/dL (6.5-8.1)
[2024-03-10] MEDS: SODIUM CHLORIDE 0.9% 250ML 250 ML ONE (08:15)
[2024-03-10] MEDS ORDERED: VANCOMYCIN 250MG/5ML ORAL SOLN PO SCH (09:00)
[2024-03-10] MEDS: VANCOMYCIN 250MG/5ML ORAL SOLN PO SCH (13:43)
[2024-03-10] MEDS: SENNA-S TABLET PEG SCH (21:42)
[2024-03-10] MEDS: BISACODYL 10 MG SUPP PR ONE (21:43)
[2024-03-11] VITALS (10 sets, daily range): BP systolic 109–119; BP diastolic 66–84; PULSE 98–122; RESP 17–20; TEMP 97.7–99; O2SAT 95–100
[2024-03-11] MEDS: VANCOMYCIN 250MG/5ML ORAL SOLN PO SCH
[2024-03-11] MEDS: SODIUM BICARBONATE 8.4% SYRING 100 ML in DEXTROSE 5% 1,000 ML IV SCH (03:56)
[2024-03-11] MEDS: DEXTROSE 5% 1,000 ML IV ONE (03:57)
[2024-03-11] MEDS: SODIUM BICARBONATE 8.4% SYRING 100 ML ONE (03:57)
[2024-03-11 05:59] LABS: BASOPHILS % 0.2 % (0.0-1.0); EOSINOPHILS # (AUTO) 0.1 (0.0-0.4); EOSINOPHILS % 0.7 % (0.0-6.0); HEMATOCRIT 26.8 % (38.2-49.6); HEMOGLOBIN 8.3 g/dL (14.0-18.0); LYMPHOCYTES # (AUTO) 1.3 (1.0-3.2); LYMPHOCYTES % 7.3 % (18.0-39.1); MEAN CORPUSCULAR VOLUME 93.7 fL (81-99); MONOCYTES # (AUTO) 1.2 (0.2-0.8); MONOCYTES % 6.6 % (4.4-11.3); NEUTROPHILS # (AUTO) 14.9 (2.1-6.9); NEUTROPHILS % 84.4 % (38.7-80.0); PLATELET COUNT 434 x10e3/uL (140-360); RED BLOOD COUNT 2.86 x10e6/uL (4.3-5.7); RED CELL DISTRIBUTION WIDTH 14.6 % (11.7-14.4); WHITE BLOOD COUNT 17.64 x10e3/uL (4.8-10.8)
[2024-03-11] MEDS: VANCOMYCIN 250MG/5ML ORAL SOLN PEG SCH (06:06)
[2024-03-11 06:33] LABS: ALBUMIN 1.9 g/dL (3.5-5.0); ALBUMIN/GLOBULIN RATIO 0.4 (0.8-2.0); ANION GAP 14.3 mmol/L (8-16); BILIRUBIN,TOTAL 0.2 mg/dL (0.2-1.2); CALCIUM 8.9 mg/dL (8.4-10.2); CREATININE, SERUM 1.49 mg/dL (0.72-1.25); POTASSIUM 4.3 mmol/L (3.5-5.1); TOTAL PROTEIN 6.4 g/dL (6.5-8.1)
[2024-03-11] MEDS ORDERED: SIMETHICONE 40 MG/0.6 ML BTL PEG PRN (11:00)
[2024-03-11] MEDS ORDERED: ONDANSETRON HCL 4 MG ORAL DISINTEGRATING TAB PO PRN (16:30)
[2024-03-11] MEDS: LACTATED RINGER'S 1,000 ML INJ ONE (18:10)
[2024-03-12] VITALS (15 sets, daily range): BP systolic 98–130; BP diastolic 55–89; PULSE 88–113; RESP 18–20; TEMP 97.7–99.7; O2SAT 95–100
[2024-03-12 07:08] LABS: BASOPHILS % 0.2 % (0.0-1.0); EOSINOPHILS # (AUTO) 0.1 (0.0-0.4); EOSINOPHILS % 0.5 % (0.0-6.0); HEMATOCRIT 26.4 % (38.2-49.6); HEMOGLOBIN 8.2 g/dL (14.0-18.0); LYMPHOCYTES # (AUTO) 1.6 (1.0-3.2); LYMPHOCYTES % 8.6 % (18.0-39.1); MEAN CORPUSCULAR HEMOGLOBIN 28.9 pg (28-32); MEAN CORPUSCULAR HGB CONC 31.1 g/dL (31-35); MONOCYTES # (AUTO) 1.2 (0.2-0.8); MONOCYTES % 6.3 % (4.4-11.3); NEUTROPHILS # (AUTO) 15.7 (2.1-6.9); NEUTROPHILS % 83.7 % (38.7-80.0); PLATELET COUNT 503 x10e3/uL (140-360); RED BLOOD COUNT 2.84 x10e6/uL (4.3-5.7); RED CELL DISTRIBUTION WIDTH 14.5 % (11.7-14.4); WHITE BLOOD COUNT 18.77 x10e3/uL (4.8-10.8)
[2024-03-12 07:36] LABS: ALBUMIN 1.9 g/dL (3.5-5.0); ALBUMIN/GLOBULIN RATIO 0.5 (0.8-2.0); ANION GAP 14.1 mmol/L (8-16); BILIRUBIN,TOTAL 0.2 mg/dL (0.2-1.2); CALCIUM 9.1 mg/dL (8.4-10.2); CREATININE, SERUM 1.4 mg/dL (0.72-1.25); POTASSIUM 4.1 mmol/L (3.5-5.1); TOTAL PROTEIN 5.9 g/dL (6.5-8.1)
[2024-03-12] MEDS: BISACODYL 10 MG SUPP PR ONE (12:25)
[2024-03-13] VITALS (11 sets, daily range): BP systolic 92–131; BP diastolic 53–75; PULSE 76–117; RESP 17–23; TEMP 97.1–98.6; O2SAT 94–100
[2024-03-13 06:14] LABS: ANION GAP 14.8 mmol/L (8-16); CALCIUM 8.8 mg/dL (8.4-10.2); CREATININE, SERUM 1.61 mg/dL (0.72-1.25); POTASSIUM 3.8 mmol/L (3.5-5.1)
[2024-03-13] MEDS: SODIUM BICARBONATE 8.4% SYRING 50 ML in SODIUM CHLORIDE 0.45% 1,000 ML IV SCH (23:25)
[2024-03-14] VITALS (11 sets, daily range): BP systolic 109–117; BP diastolic 65–73; PULSE 110–128; RESP 17–22; TEMP 98.1–100.7; O2SAT 94–100
[2024-03-14 05:47] LABS: BASOPHILS % 0.1 % (0.0-1.0); EOSINOPHILS % 0.2 % (0.0-6.0); HEMATOCRIT 24.8 % (38.2-49.6); HEMOGLOBIN 7.8 g/dL (14.0-18.0); LYMPHOCYTES # (AUTO) 0.7 (1.0-3.2); MEAN CORPUSCULAR HEMOGLOBIN 29.2 pg (28-32); MEAN CORPUSCULAR HGB CONC 31.5 g/dL (31-35); MEAN CORPUSCULAR VOLUME 92.9 fL (81-99); MONOCYTES # (AUTO) 0.6 (0.2-0.8); MONOCYTES % 3.3 % (4.4-11.3); NEUTROPHILS # (AUTO) 15.9 (2.1-6.9); NEUTROPHILS % 91.5 % (38.7-80.0); PLATELET COUNT 719 x10e3/uL (140-360); RED BLOOD COUNT 2.67 x10e6/uL (4.3-5.7); RED CELL DISTRIBUTION WIDTH 14.6 % (11.7-14.4); WHITE BLOOD COUNT 17.38 x10e3/uL (4.8-10.8)
[2024-03-14 06:15] LABS: ANION GAP 15.5 mmol/L (8-16); CALCIUM 8.5 mg/dL (8.4-10.2); CREATININE, SERUM 1.73 mg/dL (0.72-1.25); POTASSIUM 3.5 mmol/L (3.5-5.1)
[2024-03-14] MEDS ORDERED: LEVALBUTEROL HCL SOLN NEBU 0.63 MG/3 ML NEB INH PRN (09:00)
[2024-03-14] MEDS: VANCOMYCIN 250MG/5ML ORAL SOLN PEG SCH (09:08)
[2024-03-14] MEDS: BUSPIRONE HCL 10 MG TABLET PEG SCH (09:11)
[2024-03-14] MEDS: DULOXETINE HCL 30 MG DELAYED RELEASE PEG SCH (09:18)
[2024-03-14] MEDS ORDERED: ONDANSETRON HCL 4 MG ORAL DISINTEGRATING TAB PEG PRN (12:30)
[2024-03-14] MEDS: SERTRALINE HCL 100 MG TAB PEG SCH (22:12)
[2024-03-15] VITALS (9 sets, daily range): BP systolic 94–116; BP diastolic 60–83; PULSE 100–108; RESP 15–20; TEMP 98–100.9; O2SAT 96–100
[2024-03-15] MEDS: LEVALBUTEROL HCL SOLN NEBU 0.63 MG/3 ML NEB INH SCH (07:30)
[2024-03-15 07:31] LABS: BASOPHILS % 0.2 % (0.0-1.0); EOSINOPHILS % 0.3 % (0.0-6.0); HEMATOCRIT 24.5 % (38.2-49.6); LYMPHOCYTES # (AUTO) 1.1 (1.0-3.2); LYMPHOCYTES % 8.3 % (18.0-39.1); MEAN CORPUSCULAR HEMOGLOBIN 28.7 pg (28-32); MEAN CORPUSCULAR VOLUME 92.5 fL (81-99); MONOCYTES # (AUTO) 0.4 (0.2-0.8); MONOCYTES % 3.1 % (4.4-11.3); NEUTROPHILS # (AUTO) 11.2 (2.1-6.9); NEUTROPHILS % 87.5 % (38.7-80.0); PLATELET COUNT 739 x10e3/uL (140-360); RED BLOOD COUNT 2.65 x10e6/uL (4.3-5.7); RED CELL DISTRIBUTION WIDTH 14.6 % (11.7-14.4); WHITE BLOOD COUNT 12.82 x10e3/uL (4.8-10.8)
[2024-03-15 07:39] LABS: HEMOGLOBIN 7.6 g/dL (14.0-18.0)
[2024-03-15 08:06] LABS: ALBUMIN 1.8 g/dL (3.5-5.0); CALCIUM 8.6 mg/dL (8.4-10.2); CREATININE, SERUM 1.81 mg/dL (0.72-1.25); MAGNESIUM 2.1 MG/DL (1.3-2.1)
[2024-03-15] MEDS ORDERED: INFANTS' G40 MG/0.6 PEG (13:27)
[2024-03-15] MEDS ORDERED: ACETAMINOP325 MG/10 NG (13:27)
[2024-03-15] MEDS ORDERED: CYMBALTA30 MG PEG (13:27)
[2024-03-15] MEDS ORDERED: Levalbuterol Hcl Soln Nebu INH (13:27)
[2024-03-15] MEDS ORDERED: LIPITOR20 MG PEG (13:27)
[2024-03-15] MEDS ORDERED: FAMOTIDINE20 MG PEG (13:27)
[2024-03-15] MEDS ORDERED: ZOLOFT100 MG PEG (13:27)
[2024-03-15] MEDS ORDERED: BUSPIRONE HCL10 MG PEG (13:27)
[2024-03-15] MEDS ORDERED: Home Medication NG (13:27)
[2024-03-15] MEDS ORDERED: SENNA S TABLET1 EACH PEG (13:27)
[2024-03-15] MEDS ORDERED: VANCOCIN HCL250 MG PEG (13:27)
[2024-03-15] MEDS ORDERED: IMIPRAMINE HCL50 MG PEG (13:30)
== END 2024-03-15 15:00 | DRG 853 ==
LOC: ER 12:37 → ERHOLD 16:54 → MED/SURG3 18:46 → ICU 03-04 12:58 → MED/SURG2 03-05 01:00
PROVIDERS: ADMIT Family Medicine Adult Medicine; ATTEND Family Medicine Adult Medicine
PROC: 3E0333Z Introduction of Anti-inflammatory into Peripheral Vein, Percutaneous Approach (ICD-10-PCS; 2024-02-24)
PROC: 4A133R1 Monitoring of Arterial Saturation, Peripheral, Percutaneous Approach (ICD-10-PCS; 2024-02-26)
PROC: 0T9B70Z Drainage of Bladder with Drainage Device, Via Natural or Artificial Opening (ICD-10-PCS; 2024-03-02)
PROC: 0DH63UZ Insertion of Feeding Device into Stomach, Percutaneous Approach (ICD-10-PCS; 2024-03-03)
PROC: 0TT00ZZ Resection of Right Kidney, Open Approach (ICD-10-PCS; principal; 2024-03-04 09:33)
PROC: 30233N1 Transfusion of Nonautologous Red Blood Cells into Peripheral Vein, Percutaneous Approach (ICD-10-PCS; 2024-03-06)
DX: A41.50 Gram-negative sepsis, unspecified (principal); E43 Unspecified severe protein-calorie malnutrition; J69.0 Pneumonitis due to inhalation of food and vomit; N17.9 Acute kidney failure, unspecified; R64 Cachexia; E87.20 Acidosis, unspecified; D62 Acute posthemorrhagic anemia; N39.0 Urinary tract infection, site not specified; E87.1 Hypo-osmolality and hyponatremia; Z68.1 Body mass index [BMI] 19.9 or less, adult; N13.6 Pyonephrosis; K56.7 Ileus, unspecified; A04.72 Enterocolitis due to Clostridium difficile, not specified as recurrent; N99.522 Malfunction of incontinent external stoma of urinary tract; L89.152 Pressure ulcer of sacral region, stage 2; R62.7 Adult failure to thrive; R13.10 Dysphagia, unspecified; G35 Multiple sclerosis; R54 Age-related physical debility; N18.9 Chronic kidney disease, unspecified; Z66 Do not resuscitate; Z11.52 Encounter for screening for COVID-19; E83.52 Hypercalcemia; E87.6 Hypokalemia; R31.0 Gross hematuria; I95.1 Orthostatic hypotension; R41.82 Altered mental status, unspecified; F32.A Depression, unspecified; R79.89 Other specified abnormal findings of blood chemistry; N13.9 Obstructive and reflux uropathy, unspecified; K08.109 Complete loss of teeth, unspecified cause, unspecified class; Z79.899 Other long term (current) drug therapy; Z56.0 Unemployment, unspecified; F17.210 Nicotine dependence, cigarettes, uncomplicated
CPT/HCPCS: 36415; 36600; 49440; 71045; 71250; 74018; 74176; 74230; 74470; 80048; 80053; 82040; 82805; 82948; 83605; 83735; 83880; 83970; 84100; 84165; 84166; 84484; 85025; 85610; 86850; 86900; 86920; 87040; 87071; 87086; 87186; 87205; 87324; 87449; 88307; 93005; 94640; 94799; 99152; 99153; 99252; 99284; C1769; C1894; J0295; J0360; J0690; J0692; J0696; J1100; J1610; J1644; J1940; J2001; J2250; J2270; J2371; J2405; J2543; J3480; J7030; J7040; J7050; J7070; P9016; P9047; Q0162; Q9963; Q9967; U0002

== ENCOUNTER 2024-04-19 09:34 | Inpatient (IN) | payer MEDICARE ==
[2024-04-19] VITALS (11 sets, daily range): BP systolic 92–98; BP diastolic 60–65; PULSE 78–116; RESP 16–21; TEMP 97.9–98.4; O2SAT 98–100
[~2024-04-19] VITALS: Ht 185.4 cm; Wt 52.2 kg
[~2024-04-19 09:34] MED LIST: ACETAMINOP325 MG/10 NG; BUSPIRONE HCL10 MG PEG; BUSPIRONE HCL10 MG PO; CYMBALTA30 MG; CYMBALTA30 MG PEG; FAMOTIDINE20 MG PEG; Home Medication NG; IMIPRAMINE HCL50 MG PEG; IMIPRAMINE HCL50 MG PO; INFANTS' G40 MG/0.6 PEG; LIPITOR20 MG PEG; LIPITOR20 MG PO; Levalbuterol Hcl Soln Nebu INH; SENNA S TABLET1 EACH PEG; SERTRALINE HCL100 MG PO; VANCOCIN HCL250 MG PEG; ZOLOFT100 MG PEG
[2024-04-19] MEDS ORDERED: CEFEPIME 2 GM in SODIUM CHLORIDE 0.9% 100 ML IV STA (09:53)
[2024-04-19] MEDS ORDERED: SODIUM CHLORIDE FLUSH 10 ML SYR IV PRN (10:00)
[2024-04-19] MEDS: SODIUM CHLORIDE 0.9% 1000ML 1,560 ML IV ONE (10:14)
[2024-04-19] MEDS ORDERED: CEFTRIAXONE 1 GM VIAL IV ONE (10:15)
[2024-04-19 10:28] LABS: BASOPHILS % 0.1 % (0.0-1.0); EOSINOPHILS # (AUTO) 0.1 (0.0-0.4); EOSINOPHILS % 0.3 % (0.0-6.0); HEMATOCRIT 25.9 % (38.2-49.6); HEMOGLOBIN 7.9 g/dL (14.0-18.0); LYMPHOCYTES # (AUTO) 1.5 (1.0-3.2); MEAN CORPUSCULAR HEMOGLOBIN 28.3 pg (28-32); MEAN CORPUSCULAR HGB CONC 30.5 g/dL (31-35); MEAN CORPUSCULAR VOLUME 92.8 fL (81-99); MONOCYTES # (AUTO) 2.2 (0.2-0.8); MONOCYTES % 7.7 % (4.4-11.3); NEUTROPHILS # (AUTO) 24.6 (2.1-6.9); PLATELET COUNT 1030 x10e3/uL (140-360); RED BLOOD COUNT 2.79 x10e6/uL (4.3-5.7); RED CELL DISTRIBUTION WIDTH 17.6 % (11.7-14.4); WHITE BLOOD COUNT 28.97 x10e3/uL (4.8-10.8)
[2024-04-19 10:35] LABS: INR 1.06; PROTHROMBIN TIME 14.5 seconds (11.9-14.5)
[2024-04-19 10:36] LABS: PARTIAL THROMBOPLASTIN TIME 40.9 seconds (23.8-35.5)
[2024-04-19 10:42] LABS: ALANINE AMINOTRANSFERASE 26 IU/L (0-55); ALBUMIN 2.3 g/dL (3.5-5.0); ALBUMIN/GLOBULIN RATIO 0.4 (0.8-2.0); ALKALINE PHOSPHATASE 114 IU/L (40-150); ANION GAP 21.2 mmol/L (8-16); BILIRUBIN,TOTAL 0.3 mg/dL (0.2-1.2); BLOOD UREA NITROGEN 107 mg/dL (7-26); BUN/CREATININE RATIO 19 (6-25); CALCIUM 10.5 mg/dL (8.4-10.2); CARBON DIOXIDE 24 mmol/L (22-29); CHLORIDE 93 mmol/L (98-107); CREATINE KINASE 15 IU/L (30-200); CREATININE, SERUM 5.54 mg/dL (0.72-1.25); EST GLOMERULAR FILTRATION RATE 12 ML/MIN (>=60); GLUCOSE 131 mg/dL (74-118); SODIUM 132 mmol/L (136-145); TOTAL PROTEIN 8.6 g/dL (6.5-8.1)
[2024-04-19 10:46] LABS: POTASSIUM 6.2 mmol/L (3.5-5.1)
[2024-04-19 11:01] LABS: TROPONIN I < 0.001 ng/mL (0-0.300)
[2024-04-19 11:02] LABS: BILIRUBIN,URINE NEGATIVE (NEGATIVE); CLARITY,URINE CLOUDY (CLEAR); COLOR,URINE YELLOW (YELLOW); GLUCOSE, URINE NEGATIVE (NEGATIVE); KETONES,URINE NEGATIVE (NEGATIVE); LEUKOCYTE ESTERASE ,URINE LARGE (NEGATIVE); NITRITE,URINE NEGATIVE (NEGATIVE); PH,URINE 7 (5 - 7); PROTEIN,URINE DIPSTICK 2+ (NEGATIVE); URINE UROBILINOGEN 0.2 mg/dL (0.2 - 1)
[2024-04-19] MEDS ORDERED: METOPROLOL TART25 MG PO (11:05)
[2024-04-19] MEDS ORDERED: AMIODARONE HCL100 MG PO (11:05)
[2024-04-19] MEDS ORDERED: ATORVASTATIN CA20 MG PO (11:05)
[2024-04-19] MEDS ORDERED: ELIQUIS5 MG PO (11:06)
[2024-04-19] MEDS ORDERED: ZETIA10 MG PO (11:06)
[2024-04-19] MEDS ORDERED: EFFIENT10 MG PO (11:06)
[2024-04-19] MEDS ORDERED: LEVOTHYROXINE75 MCG PO (11:06)
[2024-04-19 11:53] LABS: BACTERIA,URINE FEW /HPF; EPITHELIAL CELLS,URINE RARE /LPF; RBC,URINE 21-50 /HPF (0-5); WBC,URINE (MAN) >50 /HPF (0-5)
[2024-04-19 13:00] LABS: BAND NEUTROPHILS % (MANUAL) 1 %; LYMPHOCYTES % (MANUAL) 2 % (19-48); MONOCYTES % (MANUAL) 1 % (3.4-9.0); MYELOCYTES % (MANUAL) 1 % (0-0); NEUTROPHILS % (MANUAL) 95 % (40-74); PLATELET ESTIMATE MARKEDLY INCREASED
[2024-04-19 13:01] LABS: PLATELET MORPHOLOGY COMMENT MODERATE LARGE; RBC MORPHOLOGY COMMENT NORMAL
[2024-04-19] MEDS: SOD POLYSTYRENE SULFONATE SUSP 15 GM/60 ML BTL PEG ONE (14:33)
[2024-04-19] MEDS ORDERED: famotidine PEG (15:59)
[2024-04-19] MEDS ORDERED: IMIPRAMINE HCL50 MG PEG (15:59)
[2024-04-19] MEDS ORDERED: CYMBALTA30 MG PEG (15:59)
[2024-04-19] MEDS ORDERED: SERTRALINE HCL50 MG PO (15:59)
[2024-04-19] MEDS: SODIUM CHLORIDE 0.9% 1000ML 1,000 ML IV SCH (16:35)
[2024-04-19 19:32] LABS: ALBUMIN 1.9 g/dL (3.5-5.0); ALBUMIN/GLOBULIN RATIO 0.4 (0.8-2.0); BILIRUBIN,TOTAL 0.2 mg/dL (0.2-1.2); CALCIUM 9.6 mg/dL (8.4-10.2); CREATININE, SERUM 4.34 mg/dL (0.72-1.25); TOTAL PROTEIN 7.1 g/dL (6.5-8.1)
[2024-04-20] VITALS (10 sets, daily range): BP systolic 92–118; BP diastolic 55–75; PULSE 114–119; RESP 17–21; TEMP 97.6–99.5; O2SAT 95–99
[2024-04-20 06:32] LABS: ALBUMIN 1.9 g/dL (3.5-5.0); ALBUMIN/GLOBULIN RATIO 0.4 (0.8-2.0); ANION GAP 17.2 mmol/L (8-16); BILIRUBIN,TOTAL 0.2 mg/dL (0.2-1.2); CALCIUM 9.9 mg/dL (8.4-10.2); CREATININE, SERUM 3.83 mg/dL (0.72-1.25); POTASSIUM 4.2 mmol/L (3.5-5.1); TOTAL PROTEIN 6.9 g/dL (6.5-8.1)
[2024-04-20 07:08] LABS: BASOPHILS % 0.2 % (0.0-1.0); EOSINOPHILS # (AUTO) 0.1 (0.0-0.4); EOSINOPHILS % 0.5 % (0.0-6.0); HEMATOCRIT 21.7 % (38.2-49.6); LYMPHOCYTES # (AUTO) 1.9 (1.0-3.2); LYMPHOCYTES % 9.2 % (18.0-39.1); MEAN CORPUSCULAR HEMOGLOBIN 28.1 pg (28-32); MEAN CORPUSCULAR HGB CONC 30.4 g/dL (31-35); MEAN CORPUSCULAR VOLUME 92.3 fL (81-99); MONOCYTES % 4.7 % (4.4-11.3); NEUTROPHILS # (AUTO) 17.1 (2.1-6.9); PLATELET COUNT 916 x10e3/uL (140-360); RED BLOOD COUNT 2.35 x10e6/uL (4.3-5.7); RED CELL DISTRIBUTION WIDTH 17.7 % (11.7-14.4); WHITE BLOOD COUNT 20.53 x10e3/uL (4.8-10.8)
[2024-04-20 07:31] LABS: HEMOGLOBIN 6.6 g/dL (14.0-18.0)
[2024-04-20] MEDS ORDERED: IMIPRAMINE HCL 50 MG TAB PEG SCH (09:00)
[2024-04-20] MEDS: DULOXETINE HCL 30 MG DELAYED RELEASE PEG SCH (09:47)
[2024-04-20] MEDS: SERTRALINE HCL 50 MG TAB PEG SCH (09:47)
[2024-04-20] MEDS: BUSPIRONE HCL 10 MG TABLET PEG SCH (09:48)
[2024-04-20] MEDS: FAMOTIDINE 20 MG TAB PEG SCH (09:48)
[2024-04-20] MEDS ORDERED: HYDROCODON-ACE1 EAC9 PEG (11:28)
[2024-04-20] MEDS: POLYETHYLENE GLYCOL 3350 17 GM PACK GT SCH (13:02)
[2024-04-20] MEDS: HYDROCODONE/APAP 10MG-325MG TAB PO PRN (13:02)
[2024-04-20] MEDS ORDERED: METOPROLOL SUCC25 MG PO (19:33)
[2024-04-20] MEDS: SODIUM CHLORIDE 0.9% 250ML 250 ML IV ONE (19:39)
[2024-04-20] MEDS: SODIUM CHLORIDE 0.9% 250ML 250 ML ONE ×2 (19:39→19:41)
[2024-04-20] MEDS: IMIPRAMINE HCL 50 MG TAB PEG SCH (21:00)
[2024-04-21] VITALS (12 sets, daily range): BP systolic 120–133; BP diastolic 78–85; PULSE 111–118; RESP 15–18; TEMP 97–98.5; O2SAT 98–100
[2024-04-21 07:08] LABS: BASOPHILS # (AUTO) 0.1 (0.0-0.1); BASOPHILS % 0.3 % (0.0-1.0); EOSINOPHILS # (AUTO) 0.2 (0.0-0.4); EOSINOPHILS % 0.6 % (0.0-6.0); HEMOGLOBIN 9.2 g/dL (14.0-18.0); LYMPHOCYTES # (AUTO) 2.1 (1.0-3.2); LYMPHOCYTES % 7.5 % (18.0-39.1); MEAN CORPUSCULAR HEMOGLOBIN 28.4 pg (28-32); MEAN CORPUSCULAR HGB CONC 30.7 g/dL (31-35); MEAN CORPUSCULAR VOLUME 92.6 fL (81-99); MONOCYTES # (AUTO) 0.9 (0.2-0.8); MONOCYTES % 3.2 % (4.4-11.3); NEUTROPHILS # (AUTO) 23.7 (2.1-6.9); PLATELET COUNT 916 x10e3/uL (140-360); RED BLOOD COUNT 3.24 x10e6/uL (4.3-5.7); RED CELL DISTRIBUTION WIDTH 17.1 % (11.7-14.4); WHITE BLOOD COUNT 27.54 x10e3/uL (4.8-10.8)
[2024-04-21] MEDS ORDERED: SODIUM CHLORIDE 0.9% 1000ML 1,000 ML IV SCH (07:30)
[2024-04-21 07:52] LABS: ALBUMIN/GLOBULIN RATIO 0.4 (0.8-2.0); ANION GAP 15.7 mmol/L (8-16); BILIRUBIN,TOTAL 0.2 mg/dL (0.2-1.2); CALCIUM 9.7 mg/dL (8.4-10.2); CREATININE, SERUM 2.99 mg/dL (0.72-1.25); MAGNESIUM 2.3 MG/DL (1.3-2.1); PHOSPHORUS 4.1 MG/DL (2.3-4.7); POTASSIUM 3.7 mmol/L (3.5-5.1)
[2024-04-21] MEDS ORDERED: SODIUM CHLORIDE 0.9% IV SCH (09:00)
[2024-04-21] MEDS ORDERED: CEFEPIME IV SCH (09:00)
[2024-04-21 09:51] LABS: LYMPHOCYTES % (MANUAL) 3 % (19-48); MONOCYTES % (MANUAL) 8 % (3.4-9.0); NEUTROPHILS % (MANUAL) 89 % (40-74)
[2024-04-21 09:52] LABS: ANISOCYTOSIS SLIGHT; HYPOCHROMASIA SLIGHT; PLATELET ESTIMATE MARKEDLY INCREASED; PLATELET MORPHOLOGY COMMENT NORMAL; RBC MORPHOLOGY COMMENT NORMAL
[2024-04-21] MEDS: DEXTROSE 5% 1,000 ML IV SCH (11:36)
[2024-04-21 14:29] LABS: ANION GAP 16.1 mmol/L (8-16); CALCIUM 9.8 mg/dL (8.4-10.2); CREATININE, SERUM 2.81 mg/dL (0.72-1.25)
[2024-04-21 14:33] LABS: POTASSIUM 3.1 mmol/L (3.5-5.1)
[2024-04-21 17:28] LABS: ANION GAP 15.9 mmol/L (8-16); CALCIUM 9.3 mg/dL (8.4-10.2); CREATININE, SERUM 2.59 mg/dL (0.72-1.25)
[2024-04-21 17:33] LABS: POTASSIUM 2.9 mmol/L (3.5-5.1)
[2024-04-21] MEDS: DEXTROSE 5% IV SCH (20:05)
[2024-04-21] MEDS: POTASSIUM CHLORIDE IV SCH (20:05)
[2024-04-21 20:37] LABS: ANION GAP 16.3 mmol/L (8-16); CALCIUM 9.4 mg/dL (8.4-10.2); CREATININE, SERUM 2.49 mg/dL (0.72-1.25); POTASSIUM 3.3 mmol/L (3.5-5.1)
[2024-04-22] VITALS (13 sets, daily range): BP systolic 105–126; BP diastolic 76–86; PULSE 103–115; RESP 15–18; TEMP 97.8–98.6; O2SAT 100
[2024-04-22 01:09] LABS: ANION GAP 14.6 mmol/L (8-16); CALCIUM 9.6 mg/dL (8.4-10.2); CREATININE, SERUM 2.21 mg/dL (0.72-1.25); POTASSIUM 3.6 mmol/L (3.5-5.1)
[2024-04-22 05:42] LABS: BASOPHILS % 0.2 % (0.0-1.0); EOSINOPHILS # (AUTO) 0.4 (0.0-0.4); EOSINOPHILS % 2.2 % (0.0-6.0); HEMATOCRIT 29.1 % (38.2-49.6); HEMOGLOBIN 8.9 g/dL (14.0-18.0); LYMPHOCYTES # (AUTO) 2.6 (1.0-3.2); LYMPHOCYTES % 13.4 % (18.0-39.1); MEAN CORPUSCULAR HEMOGLOBIN 28.5 pg (28-32); MEAN CORPUSCULAR HGB CONC 30.6 g/dL (31-35); MEAN CORPUSCULAR VOLUME 93.3 fL (81-99); MONOCYTES # (AUTO) 0.8 (0.2-0.8); MONOCYTES % 3.9 % (4.4-11.3); NEUTROPHILS % 76.3 % (38.7-80.0); PLATELET COUNT 844 x10e3/uL (140-360); RED BLOOD COUNT 3.12 x10e6/uL (4.3-5.7); RED CELL DISTRIBUTION WIDTH 17.2 % (11.7-14.4); WHITE BLOOD COUNT 19.66 x10e3/uL (4.8-10.8)
[2024-04-22 06:15] LABS: ALBUMIN 1.9 g/dL (3.5-5.0); ALBUMIN/GLOBULIN RATIO 0.4 (0.8-2.0); ANION GAP 13.4 mmol/L (8-16); BILIRUBIN,TOTAL 0.2 mg/dL (0.2-1.2); CALCIUM 9.6 mg/dL (8.4-10.2); CREATININE, SERUM 2.19 mg/dL (0.72-1.25); TOTAL PROTEIN 6.3 g/dL (6.5-8.1)
[2024-04-22 06:21] LABS: POTASSIUM 3.4 mmol/L (3.5-5.1)
[2024-04-22 14:52] LABS: ANION GAP 12.2 mmol/L (8-16); CALCIUM 9.1 mg/dL (8.4-10.2); CREATININE, SERUM 2.02 mg/dL (0.72-1.25); POTASSIUM 4.2 mmol/L (3.5-5.1)
[2024-04-22] MEDS: SODIUM CHLORIDE 0.45% 1,000 ML IV SCH (18:18)
[2024-04-23] VITALS (8 sets, daily range): BP systolic 97–124; BP diastolic 70–87; PULSE 56–118; RESP 18; TEMP 97.7–98.8; O2SAT 99–100
[2024-04-23 06:09] LABS: BASOPHILS % 0.2 % (0.0-1.0); EOSINOPHILS # (AUTO) 0.5 (0.0-0.4); EOSINOPHILS % 2.6 % (0.0-6.0); HEMATOCRIT 31.4 % (38.2-49.6); HEMOGLOBIN 9.3 g/dL (14.0-18.0); LYMPHOCYTES # (AUTO) 2.1 (1.0-3.2); LYMPHOCYTES % 12.3 % (18.0-39.1); MEAN CORPUSCULAR HEMOGLOBIN 28.4 pg (28-32); MEAN CORPUSCULAR HGB CONC 29.6 g/dL (31-35); MONOCYTES # (AUTO) 0.8 (0.2-0.8); MONOCYTES % 4.6 % (4.4-11.3); NEUTROPHILS # (AUTO) 13.4 (2.1-6.9); PLATELET COUNT 781 x10e3/uL (140-360); RED BLOOD COUNT 3.27 x10e6/uL (4.3-5.7); RED CELL DISTRIBUTION WIDTH 17.2 % (11.7-14.4); WHITE BLOOD COUNT 17.36 x10e3/uL (4.8-10.8)
[2024-04-23 06:34] LABS: ALBUMIN 2.8 g/dL (3.5-5.0); ALBUMIN/GLOBULIN RATIO 0.7 (0.8-2.0); ANION GAP 13.2 mmol/L (8-16); BILIRUBIN,TOTAL 0.3 mg/dL (0.2-1.2); CALCIUM 9.3 mg/dL (8.4-10.2); CREATININE, SERUM 1.84 mg/dL (0.72-1.25); POTASSIUM 4.2 mmol/L (3.5-5.1); TOTAL PROTEIN 6.6 g/dL (6.5-8.1)
[2024-04-24] VITALS: BP 112/81; PULSE 105; RESP 17; TEMP 98.8; O2SAT 100
[2024-04-24 04:00] VITALS: BP 118/78; PULSE 107; RESP 16; TEMP 97.6; O2SAT 99
[2024-04-24 08:02] LABS: BASOPHILS % 0.2 % (0.0-1.0); EOSINOPHILS # (AUTO) 0.4 (0.0-0.4); HEMATOCRIT 32.5 % (38.2-49.6); HEMOGLOBIN 9.8 g/dL (14.0-18.0); LYMPHOCYTES # (AUTO) 2.6 (1.0-3.2); LYMPHOCYTES % 14.8 % (18.0-39.1); MEAN CORPUSCULAR HEMOGLOBIN 28.7 pg (28-32); MEAN CORPUSCULAR HGB CONC 30.2 g/dL (31-35); MONOCYTES # (AUTO) 0.6 (0.2-0.8); MONOCYTES % 3.2 % (4.4-11.3); NEUTROPHILS # (AUTO) 13.6 (2.1-6.9); NEUTROPHILS % 76.7 % (38.7-80.0); PLATELET COUNT 861 x10e3/uL (140-360); RED BLOOD COUNT 3.42 x10e6/uL (4.3-5.7); RED CELL DISTRIBUTION WIDTH 17.2 % (11.7-14.4); WHITE BLOOD COUNT 17.75 x10e3/uL (4.8-10.8)
[2024-04-24 08:27] LABS: ALBUMIN 2.9 g/dL (3.5-5.0); ALBUMIN/GLOBULIN RATIO 0.8 (0.8-2.0); BILIRUBIN,TOTAL 0.3 mg/dL (0.2-1.2); CALCIUM 9.8 mg/dL (8.4-10.2); CREATININE, SERUM 1.7 mg/dL (0.72-1.25); TOTAL PROTEIN 6.5 g/dL (6.5-8.1)
[2024-04-24] MEDS ORDERED: LEVOFLOXACIN250 MG PO (09:25)
== END 2024-04-24 11:35 | disposition home health service (06) | DRG 871 ==
LOC: ER 09:42 → ERHOLD 13:05 → MED/SURG3 14:50
PROVIDERS: ADMIT Family Medicine Adult Medicine; ATTEND Family Medicine Adult Medicine
PROC: 0T9B70Z Drainage of Bladder with Drainage Device, Via Natural or Artificial Opening (ICD-10-PCS; principal; 2024-04-19)
PROC: 3E0333Z Introduction of Anti-inflammatory into Peripheral Vein, Percutaneous Approach (ICD-10-PCS; 2024-04-19)
PROC: 30233N1 Transfusion of Nonautologous Red Blood Cells into Peripheral Vein, Percutaneous Approach (ICD-10-PCS; 2024-04-20)
DX: A41.52 Sepsis due to Pseudomonas (principal); E43 Unspecified severe protein-calorie malnutrition; N17.9 Acute kidney failure, unspecified; R64 Cachexia; E87.1 Hypo-osmolality and hyponatremia; D62 Acute posthemorrhagic anemia; Z68.1 Body mass index [BMI] 19.9 or less, adult; N13.6 Pyonephrosis; Z16.24 Resistance to multiple antibiotics; A26 Erysipeloid; R65.20 Severe sepsis without septic shock; R62.7 Adult failure to thrive; D69.59 Other secondary thrombocytopenia; E86.0 Dehydration; R31.9 Hematuria, unspecified; N18.30 Chronic kidney disease, stage 3 unspecified; Z11.52 Encounter for screening for COVID-19; G35 Multiple sclerosis; F32.A Depression, unspecified; B96.5 Pseudomonas (aeruginosa) (mallei) (pseudomallei) as the cause of diseases classified elsewhere; D75.839 Thrombocytosis, unspecified; K59.00 Constipation, unspecified; E87.5 Hyperkalemia; Z79.890 Hormone replacement therapy; Z90.5 Acquired absence of kidney; Z86.73 Personal history of transient ischemic attack (TIA), and cerebral infarction without residual deficits; Z87.442 Personal history of urinary calculi; F17.200 Nicotine dependence, unspecified, uncomplicated
CPT/HCPCS: 36415; 51700; 71045; 74176; 80048; 80053; 81001; 82550; 83605; 83735; 83880; 84100; 84484; 85025; 85610; 85730; 86850; 86900; 86920; 87086; 87186; 93005; 94760; 94799; 99252; 99285; J0692; J0696; J3480; J7030; J7050; J7070; P9016; U0002

== ENCOUNTER 2024-08-25 02:49 | Inpatient (IN) | payer MEDICARE ==
[~2024-08-25] VITALS: Ht 180.3 cm; Wt 65.4 kg
[2024-08-25] VITALS (79 sets, daily range): BP systolic 78–131; BP diastolic 52–92; PULSE 110–133; RESP 17–34; TEMP 98.3–101.2; O2SAT 90–100
[~2024-08-25 02:49] MED LIST changes: +AMIODARONE HCL100 MG PO; +ATORVASTATIN CA20 MG PO; +EFFIENT10 MG PO; +ELIQUIS5 MG PO; +HYDROCODON-ACE1 EAC9 PEG; +LEVOFLOXACIN250 MG PO; +LEVOTHYROXINE75 MCG PO; +METOPROLOL SUCC25 MG PO; +METOPROLOL TART25 MG PO; +SERTRALINE HCL50 MG PO; +ZETIA10 MG PO; +famotidine PEG
[2024-08-25] MEDS ORDERED: ACETAMINOPHEN 325 MG TAB PO STA (02:52)
[2024-08-25] MEDS ORDERED: SODIUM CHLORIDE 0.9% 1000ML 1,000 ML ONE (02:58)
[2024-08-25] MEDS ORDERED: NOREPINEPHRINE 8 MG/D5W 250 ML 250 ML ONE (03:03)
[2024-08-25] MEDS: SODIUM CHLORIDE 0.9% 1000ML 1,000 ML IV STA (03:11)
[2024-08-25] MEDS ORDERED: NOREPINEPHRINE 8 MG/D5W 250 ML 250 ML IV SCH (03:15)
[2024-08-25] MEDS: NOREPINEPHRINE 8 MG/D5W 250 ML 250 ML IV SCH (03:18)
[2024-08-25] MEDS ORDERED: PIPERACILLIN/TAZOBACTAM 3.375 GM VIAL ONE (03:20)
[2024-08-25] MEDS: ACETAMINOPHEN 1000 MG/100 ML IV STA (03:23)
[2024-08-25 03:32] LABS: BASOPHILS % 0.4 % (0.0-1.0); EOSINOPHILS % 0.6 % (0.0-6.0); HEMATOCRIT 44.4 % (38.2-49.6); HEMOGLOBIN 13.2 g/dL (14.0-18.0); LYMPHOCYTES # (AUTO) 0.7 (1.0-3.2); LYMPHOCYTES % 13.2 % (18.0-39.1); MEAN CORPUSCULAR HEMOGLOBIN 30.2 pg (28-32); MEAN CORPUSCULAR HGB CONC 29.7 g/dL (31-35); MEAN CORPUSCULAR VOLUME 101.6 fL (81-99); MONOCYTES # (AUTO) 0.2 (0.2-0.8); MONOCYTES % 4.5 % (4.4-11.3); NEUTROPHILS # (AUTO) 4.3 (2.1-6.9); NEUTROPHILS % 80.5 % (38.7-80.0); PLATELET COUNT 589 x10e3/uL (140-360); RED BLOOD COUNT 4.37 x10e6/uL (4.3-5.7); RED CELL DISTRIBUTION WIDTH 15.6 % (11.7-14.4); WHITE BLOOD COUNT 5.32 x10e3/uL (4.8-10.8)
[2024-08-25] MEDS ORDERED: IOPAMIDOL 370 MG/ML 100 ML INFUS..BTL INJ ONE (03:43)
[2024-08-25 03:53] LABS: ALBUMIN 2.8 g/dL (3.5-5.0); ALBUMIN/GLOBULIN RATIO 0.7 (0.8-2.0); ANION GAP 21.4 mmol/L (8-16); BILIRUBIN,TOTAL 0.3 mg/dL (0.2-1.2); CALCIUM 10.2 mg/dL (8.4-10.2); CREATININE, SERUM 4.3 mg/dL (0.72-1.25); POTASSIUM 4.4 mmol/L (3.5-5.1); TOTAL PROTEIN 6.9 g/dL (6.5-8.1)
[2024-08-25 04:00] LABS: TROPONIN I 0.038 ng/mL (0-0.300)
[2024-08-25 04:04] LABS: B-TYPE NATRIURETIC PEPTIDE2 30.5 pg/mL (0-100)
[2024-08-25 04:07] LABS: CLARITY,URINE TURBID (CLEAR); COLOR,URINE PINK (YELLOW); GLUCOSE, URINE NEGATIVE (NEGATIVE); KETONES,URINE NEGATIVE (NEGATIVE); LEUKOCYTE ESTERASE ,URINE MODERATE (NEGATIVE); NITRITE,URINE POSITIVE (NEGATIVE); PH,URINE 8.5 (5 - 7); PROTEIN,URINE DIPSTICK >=300 (NEGATIVE); URINE UROBILINOGEN 0.2 mg/dL (0.2 - 1)
[2024-08-25 04:08] LABS: BILIRUBIN,URINE NEGATIVE (NEGATIVE)
[2024-08-25] MEDS ORDERED: Morphine 4mg INJECTION 4 MG/ML INJ IV PRN (04:15)
[2024-08-25] MEDS: SODIUM CHLORIDE 0.9% 1000ML 2,000 ML IV STA (04:18)
[2024-08-25 04:45] LABS: BACTERIA,URINE MANY /HPF; RBC,URINE >50 /HPF (0-5); WBC,URINE (MAN) >50 /HPF (0-5)
[2024-08-25 04:46] LABS: EPITHELIAL CELLS,URINE FEW /LPF
[2024-08-25] MEDS: SODIUM CHLORIDE 0.9% 1000ML 1,000 ML IV SCH (05:38)
[2024-08-25] MEDS: ONDANSETRON HCL INJ 2MG/ML 2ML 2 MG/ML VIAL IV PRN (07:55)
[2024-08-25] MEDS: HYDROMORPHONE 1MG/1ML INJ IV PRN (08:07)
[2024-08-25] MEDS: SODIUM BICARBONATE 8.4% VIAL 50 ML in SODIUM CHLORIDE 0.45% 1,000 ML IV SCH (08:21)
[2024-08-25 08:42] LABS: BAND NEUTROPHILS % (MANUAL) 11 %; LYMPHOCYTES % (MANUAL) 11 % (19-48); METAMYELOCYTES % (MANUAL) 4 % (0-0); MONOCYTES % (MANUAL) 13 % (3.4-9.0); MYELOCYTES % (MANUAL) 1 % (0-0); NEUTROPHILS % (MANUAL) 48 % (40-74); PLATELET ESTIMATE ADEQUATE; PLATELET MORPHOLOGY COMMENT NORMAL; RBC MORPHOLOGY COMMENT NORMAL; REACTIVE LYMPHOCYTES 12
[2024-08-25] MEDS: SERTRALINE HCL 50 MG TAB PO SCH (09:12)
[2024-08-25] MEDS: Vancomycin IV 1 GM in SODIUM CHLORIDE 0.9% 250ML 250 ML IV ONE (09:12)
[2024-08-25] MEDS: DULOXETINE HCL 30 MG DELAYED RELEASE PEG SCH (09:12)
[2024-08-25] MEDS: SODIUM BICARBONATE 8.4% INJ 50 ML SYR IV ONE (09:43)
[2024-08-25] MEDS: SODIUM BICARBONATE 8.4% VIAL 150 ML in DEXTROSE 5% 1,000 ML IV SCH (10:00)
[2024-08-25] MEDS: MIDODRINE 2.5 MG TAB PO SCH (10:00)
[2024-08-25] MEDS: ALBUMIN 25% 25GM 100ML 0.25 GM/ML BTL IV SCH (11:52)
[2024-08-25 12:37] LABS: CREATININE,URINE RANDOM 42.2 mg/dL (63-166)
[2024-08-25 15:13] LABS: TROPONIN I 0.05 ng/mL (0-0.300)
[2024-08-25] MEDS: MUPIROCIN 2% OINT 22 GM TUBE TOP SCH (17:23)
[2024-08-25] MEDS: ACETAMINOPHEN 325 MG/10 ML UDC NG PRN (19:51)
[2024-08-25] MEDS ORDERED: MEGESTROL400 MG/10 PO (20:10)
[2024-08-25] MEDS ORDERED: LEVETIRACETAM500 MG PO (20:10)
[2024-08-25 22:23] LABS: TROPONIN I 0.029 ng/mL (0-0.300)
[2024-08-26] VITALS (43 sets, daily range): BP systolic 93–157; BP diastolic 54–89; PULSE 119–134; RESP 19–32; TEMP 99.6–100.6; O2SAT 90–100
[2024-08-26 06:35] LABS: BASOPHILS # (AUTO) 0.1 (0.0-0.1); BASOPHILS % 0.7 % (0.0-1.0); EOSINOPHILS # (AUTO) 0.1 (0.0-0.4); EOSINOPHILS % 0.5 % (0.0-6.0); HEMOGLOBIN 10.7 g/dL (14.0-18.0); LYMPHOCYTES # (AUTO) 0.4 (1.0-3.2); LYMPHOCYTES % 3.2 % (18.0-39.1); MEAN CORPUSCULAR HEMOGLOBIN 30.4 pg (28-32); MEAN CORPUSCULAR HGB CONC 33.4 g/dL (31-35); MEAN CORPUSCULAR VOLUME 90.9 fL (81-99); MONOCYTES # (AUTO) 0.2 (0.2-0.8); MONOCYTES % 1.4 % (4.4-11.3); NEUTROPHILS # (AUTO) 11.8 (2.1-6.9); NEUTROPHILS % 86.9 % (38.7-80.0); PLATELET COUNT 357 x10e3/uL (140-360); RED BLOOD COUNT 3.52 x10e6/uL (4.3-5.7); RED CELL DISTRIBUTION WIDTH 15.9 % (11.7-14.4); WHITE BLOOD COUNT 13.58 x10e3/uL (4.8-10.8)
[2024-08-26 07:04] LABS: ALBUMIN 3.3 g/dL (3.5-5.0); ALBUMIN/GLOBULIN RATIO 1.1 (0.8-2.0); ANION GAP 18.8 mmol/L (8-16); BILIRUBIN,TOTAL 0.2 mg/dL (0.2-1.2); CALCIUM 9.8 mg/dL (8.4-10.2); CREATININE, SERUM 3.23 mg/dL (0.72-1.25); POTASSIUM 3.8 mmol/L (3.5-5.1); TOTAL PROTEIN 6.3 g/dL (6.5-8.1)
[2024-08-26 07:15] LABS: MAGNESIUM 1.9 MG/DL (1.3-2.1)
[2024-08-26] MEDS: SOD PHOSPHATE/SOD BIPHOSPHATE ENEMA 132 ML BTL PR ONE (07:26)
[2024-08-26 09:07] LABS: BAND NEUTROPHILS % (MANUAL) 9 %; EOSINOPHILS % (MANUAL) 3 % (0-7); MONOCYTES % (MANUAL) 2 % (3.4-9.0); NEUTROPHILS % (MANUAL) 86 % (40-74)
[2024-08-26 09:08] LABS: PLATELET ESTIMATE ADEQUATE; PLATELET MORPHOLOGY COMMENT NORMAL; RBC MORPHOLOGY COMMENT NORMAL
[2024-08-26] MEDS: SODIUM CHLORIDE 0.9% 1000ML 1,000 ML IV SCH (12:37)
[2024-08-26] MEDS: MIDODRINE 2.5 MG TAB PO SCH (17:02)
[2024-08-27] VITALS (26 sets, daily range): BP systolic 108–158; BP diastolic 73–87; PULSE 101–127; RESP 19–28; TEMP 99.2–101.2; O2SAT 84–100
[2024-08-27] MEDS: METOCLOPRAMIDE HCL 10 MG/2ML VIAL IV STA (00:20)
[2024-08-27 03:06] LABS: % IRON SATURATION 4 % (15-50); IRON 10 ug/dL (65-175); TOTAL IRON BINDING CAPACITY 252 ug/dL (261-478); TRANSFERRIN 180 mg/dL (174-364)
[2024-08-27 03:40] LABS: FOLATE 16.5 ng/mL (7.0-15.4)
[2024-08-27] MEDS: METOCLOPRAMIDE HCL 10 MG/2ML VIAL IV SCH (05:43)
[2024-08-27 06:47] LABS: BASOPHILS # (AUTO) 0.1 (0.0-0.1); BASOPHILS % 0.7 % (0.0-1.0); EOSINOPHILS # (AUTO) 0.1 (0.0-0.4); EOSINOPHILS % 0.5 % (0.0-6.0); HEMATOCRIT 28.6 % (38.2-49.6); HEMOGLOBIN 9.5 g/dL (14.0-18.0); LYMPHOCYTES # (AUTO) 0.7 (1.0-3.2); MEAN CORPUSCULAR HEMOGLOBIN 30.9 pg (28-32); MEAN CORPUSCULAR HGB CONC 33.2 g/dL (31-35); MEAN CORPUSCULAR VOLUME 93.2 fL (81-99); MONOCYTES # (AUTO) 0.2 (0.2-0.8); MONOCYTES % 0.8 % (4.4-11.3); NEUTROPHILS # (AUTO) 17.3 (2.1-6.9); NEUTROPHILS % 93.6 % (38.7-80.0); PLATELET COUNT 275 x10e3/uL (140-360); RED BLOOD COUNT 3.07 x10e6/uL (4.3-5.7); WHITE BLOOD COUNT 18.47 x10e3/uL (4.8-10.8)
[2024-08-27 06:59] LABS: ALBUMIN 3.3 g/dL (3.5-5.0); ALBUMIN/GLOBULIN RATIO 1.2 (0.8-2.0); ANION GAP 15.6 mmol/L (8-16); BILIRUBIN,TOTAL 0.4 mg/dL (0.2-1.2); CREATININE, SERUM 2.38 mg/dL (0.72-1.25); TOTAL PROTEIN 6.1 g/dL (6.5-8.1)
[2024-08-27 07:02] LABS: POTASSIUM 2.6 mmol/L (3.5-5.1)
[2024-08-27 08:27] LABS: INR 1.13; PROTHROMBIN TIME 15.2 seconds (11.9-14.5)
[2024-08-27 09:25] LABS: BAND NEUTROPHILS % (MANUAL) 1 %; EOSINOPHILS % (MANUAL) 2 % (0-7); LYMPHOCYTES % (MANUAL) 3 % (19-48); NEUTROPHILS % (MANUAL) 92 % (40-74); PLATELET ESTIMATE ADEQUATE; PLATELET MORPHOLOGY COMMENT NORMAL; RBC MORPHOLOGY COMMENT NORMAL; REACTIVE LYMPHOCYTES 2
[2024-08-27] MEDS: POTASSIUM CHLORIDE 20MEQ/100ML 200 ML IV ONE (09:44)
[2024-08-27] MEDS ORDERED: POTASSIUM CHLORIDE 20 MEQ TAB CR PO ONE (12:15)
[2024-08-27] MEDS: POTASSIUM CHLORIDE 20MEQ/100ML 100 ML IV SCH (16:16)
[2024-08-27] MEDS ORDERED: IOPAMIDOL 370 MG/ML 100 ML INFUS..BTL INJ ONE (20:32)
[2024-08-27] MEDS: ACETAMINOPHEN 1000 MG/100 ML IV STA (20:59)
[2024-08-27] MEDS: METRONIDAZOLE 750MG/NS 150ML 150 ML IV STA (23:42)
[2024-08-27] MEDS: METRONIDAZOLE 500MG/NS 100ML 200 ML IV ONE (23:51)
[2024-08-28] VITALS (14 sets, daily range): BP systolic 135–164; BP diastolic 90–118; PULSE 104–117; RESP 20–28; TEMP 98.9–99.8; O2SAT 96–100
[2024-08-28] MEDS: METRONIDAZOLE 500MG/NS 100ML 100 ML IV SCH (05:59)
[2024-08-28 06:44] LABS: BASOPHILS % 0.3 % (0.0-1.0); EOSINOPHILS # (AUTO) 0.1 (0.0-0.4); EOSINOPHILS % 0.7 % (0.0-6.0); HEMATOCRIT 27.1 % (38.2-49.6); HEMOGLOBIN 8.6 g/dL (14.0-18.0); LYMPHOCYTES # (AUTO) 0.8 (1.0-3.2); LYMPHOCYTES % 5.2 % (18.0-39.1); MEAN CORPUSCULAR HEMOGLOBIN 30.6 pg (28-32); MEAN CORPUSCULAR HGB CONC 31.7 g/dL (31-35); MEAN CORPUSCULAR VOLUME 96.4 fL (81-99); MONOCYTES # (AUTO) 0.6 (0.2-0.8); MONOCYTES % 3.7 % (4.4-11.3); NEUTROPHILS # (AUTO) 14.1 (2.1-6.9); NEUTROPHILS % 89.3 % (38.7-80.0); PLATELET COUNT 268 x10e3/uL (140-360); RED BLOOD COUNT 2.81 x10e6/uL (4.3-5.7); RED CELL DISTRIBUTION WIDTH 15.8 % (11.7-14.4); WHITE BLOOD COUNT 15.73 x10e3/uL (4.8-10.8)
[2024-08-28 06:55] LABS: PHOSPHORUS 2.5 MG/DL (2.3-4.7)
[2024-08-28] MEDS ORDERED: DIATRIZOATE MEGL/DIATRIZOA SOD 30 ML BTL PO ONE (07:56)
[2024-08-28 08:20] LABS: ALBUMIN 2.8 g/dL (3.5-5.0); ALBUMIN/GLOBULIN RATIO 0.8 (0.8-2.0); ANION GAP 18.7 mmol/L (8-16); BILIRUBIN,TOTAL 0.7 mg/dL (0.2-1.2); CALCIUM 9.7 mg/dL (8.4-10.2); CREATININE, SERUM 1.96 mg/dL (0.72-1.25); TOTAL PROTEIN 6.1 g/dL (6.5-8.1)
[2024-08-28 08:25] LABS: POTASSIUM 2.7 mmol/L (3.5-5.1)
[2024-08-28] MEDS: POTASSIUM CHLORIDE 20MEQ/100ML 100 ML IV SCH (09:22)
[2024-08-28] MEDS: DEXTROSE 5%/LACTATED RINGERS 1,000 ML IV SCH (09:24)
== END 2024-08-28 14:07 | disposition other institution (70) | DRG 871 ==
LOC: ER 02:52 → ERHOLD 04:07 → ICU 05:05
PROVIDERS: ADMIT Internal Medicine; ATTEND Internal Medicine
PROC: 0DCP7ZZ Extirpation of Matter from Rectum, Via Natural or Artificial Opening (ICD-10-PCS; principal; 2024-08-25)
PROC: 3E033XZ Introduction of Vasopressor into Peripheral Vein, Percutaneous Approach (ICD-10-PCS; 2024-08-25)
PROC: 3E0333Z Introduction of Anti-inflammatory into Peripheral Vein, Percutaneous Approach (ICD-10-PCS; 2024-08-25)
PROC: 06HY33Z Insertion of Infusion Device into Lower Vein, Percutaneous Approach (ICD-10-PCS; 2024-08-25)
PROC: 0T9B70Z Drainage of Bladder with Drainage Device, Via Natural or Artificial Opening (ICD-10-PCS; 2024-08-25)
PROC: 0W9G30Z Drainage of Peritoneal Cavity with Drainage Device, Percutaneous Approach (ICD-10-PCS; 2024-08-27)
PROC: 02HV33Z Insertion of Infusion Device into Superior Vena Cava, Percutaneous Approach (ICD-10-PCS; 2024-08-27)
DX: A41.4 Sepsis due to anaerobes (principal); G93.41 Metabolic encephalopathy; K72.00 Acute and subacute hepatic failure without coma; N17.0 Acute kidney failure with tubular necrosis; K63.1 Perforation of intestine (nontraumatic); R65.21 Severe sepsis with septic shock; K65.9 Peritonitis, unspecified; M62.82 Rhabdomyolysis; R64 Cachexia; E87.20 Acidosis, unspecified; R18.8 Other ascites; K56.49 Other impaction of intestine; N39.0 Urinary tract infection, site not specified; N12 Tubulo-interstitial nephritis, not specified as acute or chronic; R62.7 Adult failure to thrive; R16.0 Hepatomegaly, not elsewhere classified; R13.10 Dysphagia, unspecified; I12.9 Hypertensive chronic kidney disease with stage 1 through stage 4 chronic kidney disease, or unspecified chronic kidney disease; N18.9 Chronic kidney disease, unspecified; D63.1 Anemia in chronic kidney disease; N20.0 Calculus of kidney; E86.0 Dehydration; E87.6 Hypokalemia; K21.00 Gastro-esophageal reflux disease with esophagitis, without bleeding; R53.81 Other malaise; Z68.20 Body mass index [BMI] 20.0-20.9, adult; R11.2 Nausea with vomiting, unspecified; F32.A Depression, unspecified; G35 Multiple sclerosis; Z90.5 Acquired absence of kidney; Z86.73 Personal history of transient ischemic attack (TIA), and cerebral infarction without residual deficits; Z93.1 Gastrostomy status
CPT/HCPCS: 36415; 36555; 36556; 49083; 49406; 51700; 71260; 74018; 74177; 74470; 76705; 76937; 77003; 80053; 81001; 82040; 82550; 82570; 82607; 82746; 83540; 83605; 83690; 83735; 83880; 84100; 84157; 84300; 84466; 84484; 85025; 85045; 85610; 87040; 87070; 87071; 87075; 87086; 87186; 87205; 88112; 88305; 93005; 93306; 94799; 96361; 96366; 99252; 99284; C1729; C1769; J1171; J2185; J2405; J2470; J2543; J2765; J3480; J7030; J7050; J7070; P9047; Q9963; Q9967